=== PATIENT | female | born 1950 | race Caucasian/White ===

== ENCOUNTER → 2016-08-29 | Outpatient (REF) | payer MEDICARE ==
[~2016-08-29] MED LIST: /ALEN70TA OR; /ASCO250TA PO; ACTO150T PO; ALEN70TA39 PO; ALEV220C2 PO; ASPI325T PO; ASPI81TA85 PO; ATOR40TA PO; BACL10TA2 PO; BUTR5DIS2 TD; CALC500T36 PO; CELE40TA; COUM2.5T11 PO; CYCL10TA PO; DETR2CAP PO; FLEX10TA2 PO; GABA300C2 PO; GLUC500T3 OR; HYDR-3713 PO; HYDR-3716 PO; IMIT50TA PO; LIPI20TA PO; LUNESTA; MIACALCIN INJ; NAPR500T OR; NEUR300C PO; NORC7.5T PO; NORCOBULK PO; OMEP40CA2 PO; PAIN325T OR; PERC5TAB6 PO; PREG50CA OR; PRIL20CA PO; SERT100T OR; SIMV40TA2 OR; SUMA100T2 PO; TRAM50TA2 PO; TRAZ50TA PO; TYLE650T25 PO; TYLETAB3 PO; VICODINES TAB PO; VIT D 2000 PO; VITA100037 PO; ZONI100C2 PO; ZONI50CA PO; ZYRT10TA2 PO; [UNRECOGNIZED DRUG - REMARK]; [UNRECOGNIZED DRUG - REMARK] PO
[2016-08-29 19:02] LABS: BASO # 0.1 K/mm3 (0.0-0.2); EOS % 0.3 % (0.0-3.0); LARGE UNSTAINED CELL # 0.1 K/mm3 (0.0-0.4); LARGE UNSTAINED CELL % 1.1 % (0.0-4.0); LYMPH # 2.3 K/mm3 (1.5-4.5); LYMPH % 20.6 % (24.0-44.0); MEAN CORPUSCULAR HEMOGLOBIN 28.5 pg (27.0-33.0); MEAN CORPUSCULAR HGB CONC 32.5 g/dl (32.0-36.5); MEAN CORPUSCULAR VOLUME 87.7 fl (80.0-96.0); MONO # 0.6 K/mm3 (0.0-0.8); MONO % 5.3 % (0.0-5.0); NEUTROPHILS # 7.7 K/mm3 (1.8-7.7); NEUTROPHILS % 71.6 % (36.0-66.0); PLATELET COUNT, AUTOMATED 153 k/mm3 (150-450); RED CELL DISTRIBUTION WIDTH 13.2 % (11.5-14.5); WHITE BLOOD COUNT 10.8 K/mm3 (4.0-10.0)
[2016-08-29 19:57] LABS: ERYTHROCYTE SEDIMENTATION RATE 26 mm/hr (0-30)
[2016-09-01 00:11] LABS: Lyme Disease IgG/IgM Antibodie <0.91 ISR (0.00-0.90); Lyme Disease IgM Ab Quantitati <0.80 index (0.00-0.79)
== END ==
LOC: M LABDRAW1 16:29
PROVIDERS: ATTEND Orthopaedic Surgery
DX: M19.071 Primary osteoarthritis, right ankle and foot (principal)

== ENCOUNTER → 2016-09-20 | Outpatient (CLI) | payer MEDICARE ==
--- NOTE | 2016-09-21 01:30 | ECWPNPC ---
PATIENT NAME: DWAYNE PERALTA : 1950 GENDER: FEMALE VISIT DATE: 09/20/2016 DISCHARGE DATE: 09/20/16 1000 VISIT LOCKED DATE TIME: PHYSICIAN: KEN AMEZQUITA RESOURCE: KEN AMEZQUITA REASON FOR APPOINTMENT 1. LOW BACK PAIN HISTORY OF PRESENT ILLNESS HISTORY OF PRESENT ILLNESS: PAIN THE PATIENT DESCRIBES THE PAIN... THE PATIENT DESCRIBES THE PAIN... THE PATIENT DESCRIBES THE PAIN... HERE FOR F/U OF PERSISTENT LBP.HAD RIGHT TOTAL KNEE ON 06-28-16.CURRENTLY INVOLVED WITH PT.USING HYDROCODONE 7.5/325 PERIODICALLY FOR SEVERE PAIN.TAKING GABAPENTIN 300MG BID AND MELOXICAM7.5MG DAILY.SINCE TOTAL KNEE SURGERY REPORTING HYDROCODONE NOT EFFECTIVE .USING AT THE MOST 2 PER DAY.REPORTING INCREASE IN RIGHT LBP. MEDICATION HELPFUL AT .DENIES SIDE EFFECTS.RATING LBP 5/10 VAS. FALL RISK SCREENING: SCREENING :NO FALLS IN THE PAST YEAR CURRENT MEDICATIONS TAKING TRAZODONE HCL 50 MG TABLET 1-2 TABLETS AT BEDTIME ORALLY ONCE A DAY TAKING ZONEGRAN 100 MG CAPSULE 2 CAPS ORALLY ONCE AT NIGHT, NOTES: ALI TAKING CALCIUM 600 MG TABLET 1 TABLET WITH MEALS ORALLY ONCE A DAY TAKING SUMATRIPTAN SUCCINATE 100 MG TABLET 1 TABLET NEEDED ONE TIME ORALLY ONCE A DAY NEEDED TAKING VITAMIN D 2000 UNIT CAPSULE 1 CAPSULE ORALLY ONCE A DAY TAKING ASPIR-81 81 MG TABLET DELAYED RELEASE 1 TABLET ORALLY ONCE A DAY 3 TIMES A WEEK TAKING SALINE NASAL SPRAY 0.65 % SOLUTION 2 DROPS IN EACH NOSTRIL NEEDED NASALLY EVERY 4 HRS NEEDED TAKING SERTRALINE HCL 100 MG TABLET 1 1/2 TABLETS ONCE A DAY ORALLY 30 DAYS TAKING ESTRACE 0.1 MG/GM CREAM 1 GM VAGINAL TWICE WEEKLY TAKING ALENDRONATE 70 70MG TABLET 1 TABLET ORAL ONCE A WEEK...NEEDS AN APPT TAKING OMEPRAZOLE 40MG 40 MG TABLET 1 TABLET ORAL ONCE A DAY...NEEDS AN APPT TAKING LIPITOR 40 MG TABLET 1 TABLET ONCE A DAY... NEEDS TO SCHEDULE AN APPT ORALLY 30 DAYS TAKING NORCO 7.5-325 MG TABLET 1 TABLET NEEDED ORALLY EVERY 6 HRS MDD4 TAKING GABAPENTIN 300MG CAPSULE 2 CAPS ORALLY TWICE A DAY, NOTES: PAIN CLINIC TAKING TIZANIDINE HCL 4 MG TABLET 1 TABLET NEEDED ORALLY THREE TIMES A DAY NOT-TAKING CUSTOM DO NOT USE TRAMADOL 50 MG TABLET 1 TAB(S) ORALLY TWICE A DAY NEEDED, NOTES: PAIN CLINIC NOT-TAKING ZOFRAN 8 MG TABLET 1 TABLET ORALLY ONCE A DAY NEEDED NOT-TAKING FLEXERIL 10 MG 30 10 MG TABLETS ONE TABLET ORALLY EVERY 8 HOURS PRN PAIN, NOTES: ALI NOT-TAKING ZYRTEC ALLERGY 10 MG TABLET 1 TABLET ONCE A DAY ORALLY 30 DAYS NOT-TAKING ALENDRONATE SODIUM 70 TABLET TAKE 1 TABLET BY MOUTH ONCE A WEEK* NEED APPOINTMENT FOR REFILLS* NOT-TAKING SENOKOT S 8.6-50 MG TABLET 2 TABLET IN THE EVENING NEEDED ORALLY QHS, NOTES: NO LONGER USING NOT-TAKING TOLTERODINE TARTRATE 2 MG TABLET 1 TABLET ORALLY TWICE A DAY DISCONTINUED BACLOFEN 10 MG TABLET 1 TABLET WITH FOOD OR MILK ORALLY THREE TIMES A DAY DISCONTINUED MELOXICAM 7.5 MG TABLET 1 TABLET ORALLY DAILY UNKNOWN CEFUROXIME AXETIL 500 MG TABLET 1 TABLET ORALLY TWICE A DAY, NOTES: URGENT CARE MEDICATION LIST REVIEWED AND RECONCILED WITH THE PATIENT PAST MEDICAL HISTORY B/L LOWER EXTREMITY PAIN RIGHT HIP PAIN H/O DEPRESSION 6-7 YRS AGO. CHRONIC LOWER BACK PAIN WITH DDD - ORTHO/PAIN CLINIC OSTEOPOROSIS-BONE DENSITY (07/2011) REPEAT [id number] BONE DENSITY 12/2013-DUE IN 2015 HYPERLIPIDEMIA MIGRAINE HEADACHES CONSTIPATION, COLONOSCOPY 10/11 NONDEPENDENT TOBACCO USE DISORDER SLEEP APNEA ALLERGIES CELEBREX: EQUILIBRIUM OFF: ALLERGY PENICILLIN (FOR ALLERGIES USE ONLY): HIVES: ALLERGY LATEX (FOR ALLERGY USE ONLY): RASH: ALLERGY SURGICAL HISTORY RIGHT OOPHORECTOMY AND TUBE 1979 COLONOSCOPY W/ POLYP- DR. GRAF 2006 LEFT KNEE ARTHROCOPIC SURGERY FOR MENISCAL TEAR ([facility]) 09/2012 APPENDECTOMY/INCIDENTAL TO OVARY REMOVAL 1978- COLONOSCOPY WITH ADENOMATOUS POLYP - DR JOHNSON 09/2014 R KNEE ARTHOSCOPIC 03-04-15 TOTAL RIGHT KNEE 06/28/17 SOCIAL HISTORY GENERAL: TOBACCO USE ARE YOU A:NONSMOKER LEARNING BARRIERS / SPECIAL NEEDS ORIENTED TO PLAN OF CARE: PATIENT, PAIN MANAGEMENT PATIENT, ORIENTED TO PLAN OF CARE: PATIENT, PAIN MANAGEMENT PATIENT. NEW PATIENT PAIN DIARY TODAY'S VISITNOTES FROM 0-10, WHAT LEVEL IS YOUR PAIN TODAY?0 PAIN CLINIC PFS, CLERGY, PUBLIC HEALTH REFERRALS PFS REFERRAL NEEDED?NO CLERGY REFERRAL NEEDED?NO PUBLIC HEALTH REFERRAL NEEDED?NO WAS THE PROVIDER NOTIFIED OF ANY PERTINENT INFO?NO PFS REFERRAL NEEDED?NO CLERGY REFERRAL NEEDED?NO PUBLIC HEALTH REFERRAL NEEDED?NO WAS THE PROVIDER NOTIFIED OF ANY PERTINENT INFO?NO HOSPITALIZATION/MAJOR DIAGNOSTIC PROCEDURE COMPLEX MIGRAINES 10/16/13 REVIEW OF SYSTEMS CONSTITUTIONAL: ANY CHANGE IN YOUR MEDICAL CONDITION? YES, TOTAL RIGHT KNEE 06/28/16 DUE TO THIS SHE HAD TO CANCEL APPOINTMENTS FOR TPI. . CHILLS NO . FEVER NO . INFECTION: DO YOU HAVE NEW INFECTIONS? NO . DO YOU HAVE HISTORY OF MRSA? NO . MUSCULOSKELETAL: ANY NEW PATTERNS OF PAIN OR NUMBNESS? YES, PAIN MID BACK THAT IS SORE TO TOUCH AT TIMES. BOTH ARMS ARE JERKING AT TIME . GASTROENTEROLOGY: ANY NEW CHANGE IN BOWEL CONTROL? NO . GENITOURINARY: ANY NEW CHANGE IN BLADDER CONTROL? NO . IS THERE A CHANCE YOU COULD BE ? NO . HEMATOLOGY/LYMPH: DO YOU TAKE ANY BLOOD THINNERS? (FOR EXAMPLE- COUMADIN, PLAVIX, AGGRENOX, PLATEL, PRADAXA, OR XARELTO) NO . WHEN WAS YOUR LAST DOSE? DATE: TIME: . NEUROLOGY: HAVE YOU FALLEN IN THE PAST 6 MONTHS? NO . ANY NEW EXTREMITY NUMBNESS OR WEAKNESS? NO . CARDIOLOGY: DO YOU HAVE A PACEMAKER OR DEFIBRILLATOR? NO . RESPIRATORY: HAVE YOU BEEN SICK IN THE PAST WEEK? NO . FEVER NO . FLU LIKE SYMPTOMS? NO . COUGH NO . INTEGUMENTARY: DO YOU HAVE ANY RASHES OR OPEN SORES? NO . ALLERGIC/IMMUNO: ARE YOU ALLERGIC TO SHELLFISH OR IV DYE? NO . ANY NEW ALLERGIES? NO . PSYCHIATRIC: DO YOU HAVE THOUGHTS OF HURTING YOURSELF OR SOMEONE ELSE? NO . ARE YOU ABUSED, NEGLECTED, OR IN AN UNSAFE ENVIRONMENT? NO . ENDOCRINOLOGY: ARE YOU DIABETIC? NO . OTHER: DO YOU NEED ANY PRESCRIPTIONS? YES, HYDROCODONE . IF YES, PLEASE LIST: ____ . ANY NEW PROBLEMS WITH YOUR MEDICATIONS? NO . WHEN DID YOU LAST EAT? ____ . WHEN DID YOU LAST DRINK? ____ . WHAT DID YOU LAST DRINK? ____ . NAME OF PERSON DRIVING YOU HOME? ____ . DO YOU HAVE ANY OTHER QUESTIONS OR CONCERNS NO . REVIEWED BY: PROVIDER: KEN CHEEK . VITAL SIGNS WT 111.4 LBS, HT 59 IN, BMI 22.50 INDEX, BP 140/79 MM HG, HR 65 /MIN, RR 16 /MIN, TEMP 96.3 F, OXYGEN SAT % 95%, NA INITIALS SC 09:04, REVIEWED BY: BARTOLO. EXAMINATION GENERAL EXAMINATION: LUNGS:LUNG SOUNDS ARE CLEAR. HEART:HEART RATE REGULAR. MUSCULOSKELETAL:*, MUSCLE STRENGTH TESTING 5/5 BILATERAL, PALPATION: POSITIVE FOR PAIN OVER L/S SPINE. POSITIVE FOR PAIN OVER L/S PARASPINALS R>L.SPECIFIC POINT TENDERNESS OVER RIGHT SIJ. TRIGGER POINT NOTED RIGHT LUMBAR PARASPINAL.RESTRICTION OF ROJM LUMBAR SPINE DUE TO AGGREVATION/PAIN RIGHT LOW BACK. ASSESSMENTS BACK PAIN - LUMBAR - 724.2 (PRIMARY) SACROILIITIS - M46.1 CHRONIC PRESCRIPTION OPIATE USE - Z79.891 TREATMENT BACK PAIN - LUMBAR CONTINUE GABAPENTIN CAPSULE, 300MG, 2 CAPS, ORALLY, TWICE A DAY, NOTES: PAIN CLINIC CONTINUE TIZANIDINE HCL TABLET, 4 MG, 1 TABLET NEEDED, ORALLY, THREE TIMES A DAY REFILL NORCO TABLET, 7.5-325 MG, 1 TABLET NEEDED, ORALLY, EVERY 6 HRS MDD4, 30 DAY(S), 120, REFILLS 0 INJECTION ANESTHETIC SACROILIAC JOINT NOTES: ISTOP REGISTRY REVIEWED AND DEMNOSTRATES COMPLLIANCE. BRINGS IN MEDICATIONS WHICH IS APPROPRIATE FOR WHAT WAS DISPENSED. RECENT URINE TOXICOLOGY REVIEWED. NO UNAUTHORIZED MEDICATIONS. NO ILLICIT SUBSTANCES AND PRESCRIBED MEDICATIONS WERE PRESENT. URINE TOX TODAY. PROCEDURE CODES FA211 ESTABILISHED [facility]IENT [facility] CHARGE DISPOSITION & COMMUNICATION FOLLOW UP 2WK POST PROC. (REASON: CHANGE TPI TO R SIJ) ELECTRONICALLY SIGNED BY ADIA DALTON ON 09/20/2016 AT 04:00 PM EST DISCLAIMER : THIS IS A VISIT SUMMARY EXTRACTED FROM THE [employer] CHART. IT IS NOT A COPY OF THE [employer] PROGRESS NOTE. KARLA
== END ==
LOC: M PAIN 08:40
PROVIDERS: ATTEND Nurse Practitioner Family
DX: Z09 Encounter for follow-up examination after completed treatment for conditions other than malignant neoplasm (principal); G89.29 Other chronic pain; M46.1 Sacroiliitis, not elsewhere classified; M81.0 Age-related osteoporosis without current pathological fracture; E78.5 Hyperlipidemia, unspecified; K21.9 Gastro-esophageal reflux disease without esophagitis; G47.30 Sleep apnea, unspecified; Z88.8 Allergy status to other drugs, medicaments and biological substances; Z88.0 Allergy status to penicillin; Z91.040 Latex allergy status; Z79.82 Long term (current) use of aspirin; Z79.891 Long term (current) use of opiate analgesic; Z79.899 Other long term (current) drug therapy; Z86.59 Personal history of other mental and behavioral disorders; Z86.69 Personal history of other diseases of the nervous system and sense organs

== ENCOUNTER → 2016-09-26 | Outpatient (CLI) | payer MEDICARE ==
[~2016-09-26] MED LIST changes: +BUPIVACAINE HCL 0.25% 30 ML VIAL As Ordered ONE; +ISOVUE-M 300 61% 15ML VIAL (Q9967) As Ordered ONE; +LIDOCAINE 1% SDV INJ 30 ML VIAL As Ordered ONE; +TRIAMCINOLONE ACETONIDE SUSP 40 MG/ML VIAL (J3301) As Ordered ONE; +diazePAM 5 MG TAB As Ordered ONE; +oxyCODONE 5MG TAB As Ordered ONE
--- NOTE | 2016-09-26 12:34 | REP ---
SI JOINT SERIES: Limited study four views. HISTORY: Right SI joint injection for pain. 12 seconds of fluoroscopy time is reported. FINDINGS: A sequence of four fluoroscopically obtained intraprocedural spot radiographs of the right SI joint document needle position and contrast injection associated with SI joint injection procedure. Signed by Boni Paul MD 09/26/2016 02:01 P
--- NOTE | 2016-09-30 23:21 | ECWPNPC ---
PATIENT NAME: DWAYNE PERALTA : 1950 GENDER: FEMALE VISIT DATE: 09/26/2016 DISCHARGE DATE: 09/26/16 1024 VISIT LOCKED DATE TIME: PHYSICIAN: ESTEPHANIA GUTHRIE RESOURCE: ESTEPHANIA GUTHRIE REASON FOR APPOINTMENT 1. RIGHT SIJ HISTORY OF PRESENT ILLNESS HISTORY OF PRESENT ILLNESS: PAIN THE PATIENT DESCRIBES THE PAIN... FALL RISK SCREENING: SCREENING :NO FALLS IN THE PAST YEAR CURRENT MEDICATIONS TAKING TRAZODONE HCL 50 MG TABLET 1-2 TABLETS AT BEDTIME ORALLY ONCE A DAY, NOTES: 09/25/16@2330 TAKING ZONEGRAN 100 MG CAPSULE 2 CAPS ORALLY ONCE AT NIGHT, NOTES: 09/25/16 TAKING CALCIUM 600 MG TABLET 1 TABLET WITH MEALS ORALLY ONCE A DAY, NOTES: 09/25/16 TAKING SUMATRIPTAN SUCCINATE 100 MG TABLET 1 TABLET NEEDED ONE TIME ORALLY ONCE A DAY NEEDED, NOTES: 4-5 DAYS AGO TAKING VITAMIN D 2000 UNIT CAPSULE 1 CAPSULE ORALLY ONCE A DAY, NOTES: 09/25/16@1199 TAKING ASPIR-81 81 MG TABLET DELAYED RELEASE 1 TABLET ORALLY ONCE A DAY 3 TIMES A WEEK, NOTES: 09/25/16@1200 TAKING SALINE NASAL SPRAY 0.65 % SOLUTION 2 DROPS IN EACH NOSTRIL NEEDED NASALLY EVERY 4 HRS NEEDED, NOTES: UNKNOWN TAKING SERTRALINE HCL 100 MG TABLET 1 1/2 TABLETS ONCE A DAY ORALLY 30 DAYS , NOTES: 09/25/16@1199 TAKING ESTRACE 0.1 MG/GM CREAM 1 GM VAGINAL TWICE WEEKLY, NOTES: 2 WEEKS AGO TAKING ALENDRONATE 70 70MG TABLET 1 TABLET ORAL ONCE A WEEK...NEEDS AN APPT, NOTES: 09/24/16@1199 TAKING OMEPRAZOLE 40MG 40 MG TABLET 1 TABLET ORAL ONCE A DAY...NEEDS AN APPT, NOTES: 09/25/16 TAKING LIPITOR 40 MG TABLET 1 TABLET ONCE A DAY... NEEDS TO SCHEDULE AN APPT ORALLY 30 DAYS , NOTES: 09/24/16@1199 TAKING GABAPENTIN 300MG CAPSULE 2 CAPS ORALLY TWICE A DAY, NOTES: PAIN09/25/16@2300 CLINIC TAKING TIZANIDINE HCL 4 MG TABLET 1 TABLET NEEDED ORALLY THREE TIMES A DAY, NOTES: 1-2 WEEKS AGO TAKING NORCO 7.5-325 MG TABLET 1 TABLET NEEDED ORALLY EVERY 6 HRS MDD4, NOTES: 09/25/16@1800 NOT-TAKING CUSTOM DO NOT USE TRAMADOL 50 MG TABLET 1 TAB(S) ORALLY TWICE A DAY NEEDED, NOTES: PAIN CLINIC NOT-TAKING ZOFRAN 8 MG TABLET 1 TABLET ORALLY ONCE A DAY NEEDED NOT-TAKING FLEXERIL 10 MG 30 10 MG TABLETS ONE TABLET ORALLY EVERY 8 HOURS PRN PAIN, NOTES: ALI NOT-TAKING ZYRTEC ALLERGY 10 MG TABLET 1 TABLET ONCE A DAY ORALLY 30 DAYS NOT-TAKING ALENDRONATE SODIUM 70 TABLET TAKE 1 TABLET BY MOUTH ONCE A WEEK* NEED APPOINTMENT FOR REFILLS* NOT-TAKING SENOKOT S 8.6-50 MG TABLET 2 TABLET IN THE EVENING NEEDED ORALLY QHS, NOTES: NO LONGER USING NOT-TAKING TOLTERODINE TARTRATE 2 MG TABLET 1 TABLET ORALLY TWICE A DAY UNKNOWN CEFUROXIME AXETIL 500 MG TABLET 1 TABLET ORALLY TWICE A DAY, NOTES: URGENT CARE MEDICATION LIST REVIEWED AND RECONCILED WITH THE PATIENT PAST MEDICAL HISTORY B/L LOWER EXTREMITY PAIN RIGHT HIP PAIN H/O DEPRESSION 6-7 YRS AGO. CHRONIC LOWER BACK PAIN WITH DDD - ORTHO/PAIN CLINIC OSTEOPOROSIS-BONE DENSITY (07/2011) REPEAT [id number] BONE DENSITY 12/2013-DUE IN 2015 HYPERLIPIDEMIA MIGRAINE HEADACHES CONSTIPATION, COLONOSCOPY 10/11 NONDEPENDENT TOBACCO USE DISORDER SLEEP APNEA ALLERGIES CELEBREX: EQUILIBRIUM OFF: ALLERGY PENICILLIN (FOR ALLERGIES USE ONLY): HIVES: ALLERGY LATEX (FOR ALLERGY USE ONLY): RASH: ALLERGY SURGICAL HISTORY RIGHT OOPHORECTOMY AND TUBE 1979 COLONOSCOPY W/ POLYP- DR. GRAF 2006 LEFT KNEE ARTHROCOPIC SURGERY FOR MENISCAL TEAR ([facility]) 09/2012 APPENDECTOMY/INCIDENTAL TO OVARY REMOVAL 1978- COLONOSCOPY WITH ADENOMATOUS POLYP - DR JOHNSON 09/2014 R KNEE ARTHOSCOPIC 03-04-15 TOTAL RIGHT KNEE 06/28/17 SOCIAL HISTORY GENERAL: TOBACCO USE ARE YOU A:NONSMOKER LEARNING BARRIERS / SPECIAL NEEDS ORIENTED TO PLAN OF CARE: PATIENT, PAIN MANAGEMENT PATIENT, ORIENTED TO PLAN OF CARE: PATIENT, PAIN MANAGEMENT PATIENT. NEW PATIENT PAIN DIARY TODAY'S VISITNOTES FROM 0-10, WHAT LEVEL IS YOUR PAIN TODAY?0 PAIN CLINIC PFS, CLERGY, PUBLIC HEALTH REFERRALS PFS REFERRAL NEEDED?NO CLERGY REFERRAL NEEDED?NO PUBLIC HEALTH REFERRAL NEEDED?NO WAS THE PROVIDER NOTIFIED OF ANY PERTINENT INFO?NO PFS REFERRAL NEEDED?NO CLERGY REFERRAL NEEDED?NO PUBLIC HEALTH REFERRAL NEEDED?NO WAS THE PROVIDER NOTIFIED OF ANY PERTINENT INFO?NO HOSPITALIZATION/MAJOR DIAGNOSTIC PROCEDURE COMPLEX MIGRAINES 10/16/13 REVIEW OF SYSTEMS CONSTITUTIONAL: ANY CHANGE IN YOUR MEDICAL CONDITION? NO . CHILLS NO . FEVER NO . INFECTION: DO YOU HAVE NEW INFECTIONS? NO . DO YOU HAVE HISTORY OF MRSA? NO . MUSCULOSKELETAL: ANY NEW PATTERNS OF PAIN OR NUMBNESS? YES . GASTROENTEROLOGY: ANY NEW CHANGE IN BOWEL CONTROL? NO . GENITOURINARY: ANY NEW CHANGE IN BLADDER CONTROL? NO . IS THERE A CHANCE YOU COULD BE ? NO . HEMATOLOGY/LYMPH: DO YOU TAKE ANY BLOOD THINNERS? (FOR EXAMPLE- COUMADIN, PLAVIX, AGGRENOX, PLATEL, PRADAXA, OR XARELTO) NO . WHEN WAS YOUR LAST DOSE? DATE: TIME: . NEUROLOGY: HAVE YOU FALLEN IN THE PAST 6 MONTHS? NO . ANY NEW EXTREMITY NUMBNESS OR WEAKNESS? NO . CARDIOLOGY: DO YOU HAVE A PACEMAKER OR DEFIBRILLATOR? NO . RESPIRATORY: HAVE YOU BEEN SICK IN THE PAST WEEK? NO . FEVER NO . FLU LIKE SYMPTOMS? NO . COUGH NO . INTEGUMENTARY: DO YOU HAVE ANY RASHES OR OPEN SORES? NO . ALLERGIC/IMMUNO: ARE YOU ALLERGIC TO SHELLFISH OR IV DYE? NO . ANY NEW ALLERGIES? NO . PSYCHIATRIC: DO YOU HAVE THOUGHTS OF HURTING YOURSELF OR SOMEONE ELSE? NO . ARE YOU ABUSED, NEGLECTED, OR IN AN UNSAFE ENVIRONMENT? NO . ENDOCRINOLOGY: ARE YOU DIABETIC? NO . OTHER: DO YOU NEED ANY PRESCRIPTIONS? NO . IF YES, PLEASE LIST: ____ . ANY NEW PROBLEMS WITH YOUR MEDICATIONS? NO . WHEN DID YOU LAST EAT? 1900 . WHEN DID YOU LAST DRINK? ____ . WHAT DID YOU LAST DRINK? COFFEE . NAME OF PERSON DRIVING YOU HOME? MONIKA . DO YOU HAVE ANY OTHER QUESTIONS OR CONCERNS NO . REVIEWED BY: PROVIDER: . VITAL SIGNS WT 110 LBS, HT 59 IN, BMI 22.21 INDEX, BP 139/63 MM HG, HR 98 /MIN, RR 16 /MIN, TEMP 97.8 F, OXYGEN SAT % 99%, REVIEWED BY: KATIE. ASSESSMENTS SACROILIITIS, NOT ELSEWHERE CLASSIFIED - M46.1 (PRIMARY) PROCEDURES PN SI PRE PROCEDURE DIAGNOSIS SACROILIITIS, SACROILIAC JOINT DYSFUNCTION POST PROCEDURE DIAGNOSIS SACROILIITIS, SACROILIAC JOINT DYSFUNCTION PROCEDURE ., RIGHT SACROILIAC JOINT BLOCK SURGEON DR. ESTEPHANIA GUTHRIE [employer] LABORER NONE ANESTHESIA LOCAL PRE PROCEDURE NOTE PATIENT WITH HISTORY OF CHRONIC LOW BACK PAIN. I EVALUATED THE PATIENT AND REVIEWED THE CHART. I WENT OVER THE RISKS, ALTERNATIVES, AND BENEFITS ASSOCIATED WITH THIS PROCEDURE. THE PATIENT WOULD LIKE TO PROCEED AND GAVE CONSENT TO PERFORM THE PROCEDURE. THE PATIENT DENIES UNEXPLAINABLE WEIGHT LOSS, FEVER, CHILLS, OR NEW CHANGES IN URINARY OR BOWEL CONTROL DESCRIPTION OF PROCEDURE THE PATIENT WAS BROUGHT TO THE PROCEDURE ROOM AND PLACED IN THE PRONE POSITION. THE LUMBOSACRAL AREA WAS CLEANED WITH CHLORAPREP SOLUTION AND DRAPED ASEPTICALLY. THE PROCEDURE WAS DONE UNDER STERILE CONDITIONS. I CHECKED LATERALITY AND THE LEVEL WHERE THE PROCEDURE WAS GOING TO BE PERFORMED WITH THE PATIENT AND THE SUPPORTING STAFF AT THE MOMENT OF THE TIME OUT IN THE PROCEDURE ROOM. UNDER FLUOROSCOPIC GUIDANCE, TARGET POINT WAS SELECTED AT THE LOWER BORDER OF THE RIGHT SACROILIAC JOINT. TARGET POINT WAS SELECTED AFTER MEDIAL ROTATION AND TILT OF THE MAGNIFIER OF THE C-ARM. LIDOCAINE WAS USED TO NUMB THE SKIN AND SUBCUTANEOUS TISSUE BELOW IT. A SPINAL NEEDLE, 22-GAUGE, WAS ADVANCED UNDER FLUOROSCOPIC GUIDANCE AND FOLLOWING PATIENT FEEDBACK UNTIL THE TARGET AREA WAS TOUCHED. THE POSITION OF THE NEEDLE WAS VERIFIED WITH AP AND LATERAL VIEWS. AFTER PROPER POSITION OF THE NEEDLE WAS ACHIEVED, ISOVUE M DYE 30%, 0.25 ML, WAS INJECTED SHOWING SPREAD OF THE DYE. THEN, A SOLUTION OF 20 MG OF KENALOG WAS INJECTED IN RIGHT JOINT WITH 3 ML OF BUPIVACAINE 0.125%. THERE WAS NO EVIDENCE OF BLOOD, PARESTHESIA OR CEREBROSPINAL FLUID DURING THE PROCEDURE. THE PATIENT WAS SENT TO THE RECOVERY ROOM. THE PATIENT WAS MOVING THE EXTREMITIES AND DOING WELL. THERE WAS NO COMPLICATION DURING THE PROCEDURE. FLUOROSCOPY TIME WAS 12 SECONDS POST PROCEDURE NOTE THE PATIENT WILL BE SEEN IN A FOLLOW UP IN THE NEXT FEW WEEKS. INSTRUCTIONS WERE GIVEN, QUESTIONS WERE ANSWERED, AND THE PATIENT EXPRESSED UNDERSTANDING AND AGREED WITH THE PLAN. INSTRUCTIONS WERE GIVEN, QUESTIONS WERE ANSWERED, PATIENT REPORTS UNDERSTANDING AND AGREES WITH THE PLAN. I, CONNER FISHER, DOCUMENTED THE ABOVE INFORMATION ACTING A SCRIBE FOR DR. GUTHRIE. I HAVE REVIEWED THE ABOVE DOCUMENT, WRITTEN BY CONNER DAWKINS AND I VERIFY THAT IT IS ACCURATE. DIAGNOSTIC [facility] FLUORO GUIDANCE (PAIN)[id number] PROCEDURE CODES 56659 INJECT SACROILIAC JOINT 6045F RADXPS IN END [id number] PXD DISPOSITION & COMMUNICATION FOLLOW UP 3 WEEKS ELECTRONICALLY SIGNED BY ESTEPHANIA GUTHRIE MD ON 09/30/2016 AT 04:47 PM EST DISCLAIMER : THIS IS A VISIT SUMMARY EXTRACTED FROM THE [employer] CHART. IT IS NOT A COPY OF THE [employer] PROGRESS NOTE. MTDD
== END ==
LOC: M PAIN 09:00
PROVIDERS: ATTEND Anesthesiology
DX: G89.29 Other chronic pain (principal); M46.1 Sacroiliitis, not elsewhere classified; E78.5 Hyperlipidemia, unspecified; M81.0 Age-related osteoporosis without current pathological fracture; G47.30 Sleep apnea, unspecified; Z72.0 Tobacco use; Z88.0 Allergy status to penicillin; Z88.8 Allergy status to other drugs, medicaments and biological substances; Z91.040 Latex allergy status; Z79.82 Long term (current) use of aspirin; Z79.891 Long term (current) use of opiate analgesic; Z79.899 Other long term (current) drug therapy; Z86.59 Personal history of other mental and behavioral disorders; Z86.69 Personal history of other diseases of the nervous system and sense organs
CPT/HCPCS: G0260; J3301; Q9967

== ENCOUNTER → 2016-10-17 | Outpatient (CLI) | payer MEDICARE ==
[~2016-10-17] MED LIST changes: -BUPIVACAINE HCL 0.25% 30 ML VIAL As Ordered ONE; -ISOVUE-M 300 61% 15ML VIAL (Q9967) As Ordered ONE; -LIDOCAINE 1% SDV INJ 30 ML VIAL As Ordered ONE; -TRIAMCINOLONE ACETONIDE SUSP 40 MG/ML VIAL (J3301) As Ordered ONE; -diazePAM 5 MG TAB As Ordered ONE; -oxyCODONE 5MG TAB As Ordered ONE
--- NOTE | 2016-10-18 00:39 | ECWPNPC ---
PATIENT NAME: DWAYNE PERALTA : 1950 GENDER: FEMALE VISIT DATE: 10/17/2016 DISCHARGE DATE: 10/17/16 1016 VISIT LOCKED DATE TIME: PHYSICIAN: KEN AMEZQUITA RESOURCE: KEN AMEZQUITA REASON FOR APPOINTMENT 1. POST SIJ HISTORY OF PRESENT ILLNESS HISTORY OF PRESENT ILLNESS: HERE FOR POST PROC. F/U.HAD RSIJ ON 09-26-16.REPORTS >50% IMPROVEMENT IN PAIN POST PROCEDURE THAT CONTINUES TODAY.RATING PAIN VAS 2/10.PAIN IS LOCATED ACROSS LOW BACK AND DESCRIBED INTERMITTENT THROBBING AND SORE.USING HYDROCODONE 7.5MG SPARINGLY FOR SEVERE PAIN EPISODES.TAKING GABAPENTIN 300MG BID.FINDS MEDICATION EFFECTIVE AT REDUCING PAIN AND KEEPING HER COMFORTABLE.REPORTS FALLING ON ICE LAST WEEK AND INJURING RIGHT KNEE.STATES SHE WAS EVALUATED AT [facility] AFTER FALL DUE TO KNEE REPLACEMENT IN .EVERYTHING CHECKED OUT FINE AND SHE CONTINUES TO IMPROVE SINCE INJURY. PAIN THE PATIENT DESCRIBES THE PAIN... FALL RISK SCREENING: SCREENING :NO FALLS IN THE PAST YEAR CURRENT MEDICATIONS TAKING TRAZODONE HCL 50 MG TABLET 1-2 TABLETS AT BEDTIME ORALLY ONCE A DAY, NOTES: 09/25/16@2330 TAKING ZONEGRAN 100 MG CAPSULE 2 CAPS ORALLY ONCE AT NIGHT, NOTES: 09/25/16@2330 TAKING CALCIUM 600 MG TABLET 1 TABLET WITH MEALS ORALLY ONCE A DAY, NOTES: 09/25/16@2330 TAKING SUMATRIPTAN SUCCINATE 100 MG TABLET 1 TABLET NEEDED ONE TIME ORALLY ONCE A DAY NEEDED, NOTES: 4-5 DAYS AGO TAKING VITAMIN D 2000 UNIT CAPSULE 1 CAPSULE ORALLY ONCE A DAY, NOTES: 09/25/16@1200 TAKING ASPIR-81 81 MG TABLET DELAYED RELEASE 1 TABLET ORALLY ONCE A DAY 3 TIMES A WEEK, NOTES: 09/25/16@1200 TAKING SALINE NASAL SPRAY 0.65 % SOLUTION 2 DROPS IN EACH NOSTRIL NEEDED NASALLY EVERY 4 HRS NEEDED, NOTES: UNKNOWN TAKING SERTRALINE HCL 100 MG TABLET 1 1/2 TABLETS ONCE A DAY ORALLY 30 DAYS , NOTES: 09/25/16@1200 TAKING ESTRACE 0.1 MG/GM CREAM 1 GM VAGINAL TWICE WEEKLY, NOTES: 2 WEEKS AGO TAKING ALENDRONATE 70 70MG TABLET 1 TABLET ORAL ONCE A WEEK...NEEDS AN APPT, NOTES: 09/24/16@1200 TAKING OMEPRAZOLE 40MG 40 MG TABLET 1 TABLET ORAL ONCE A DAY...NEEDS AN APPT, NOTES: 09/25/16@1200 TAKING LIPITOR 40 MG TABLET 1 TABLET ONCE A DAY... NEEDS TO SCHEDULE AN APPT ORALLY 30 DAYS , NOTES: 09/24/16@1200 TAKING GABAPENTIN 300MG CAPSULE 1 CAPSULE ORALLY TWICE A DAY, NOTES: PAIN09/25/16@2300 CLINIC TAKING TIZANIDINE HCL 4 MG TABLET 1 TABLET NEEDED ORALLY THREE TIMES A DAY, NOTES: 1-2 WEEKS AGO TAKING NORCO 7.5-325 MG TABLET 1 TABLET NEEDED ORALLY EVERY 6 HRS MDD4, NOTES: 09/25/16@1800 NOT-TAKING CUSTOM DO NOT USE TRAMADOL 50 MG TABLET 1 TAB(S) ORALLY TWICE A DAY NEEDED, NOTES: PAIN CLINIC NOT-TAKING ZOFRAN 8 MG TABLET 1 TABLET ORALLY ONCE A DAY NEEDED NOT-TAKING FLEXERIL 10 MG 30 10 MG TABLETS ONE TABLET ORALLY EVERY 8 HOURS PRN PAIN, NOTES: ALI NOT-TAKING ZYRTEC ALLERGY 10 MG TABLET 1 TABLET ONCE A DAY ORALLY 30 DAYS NOT-TAKING ALENDRONATE SODIUM 70 TABLET TAKE 1 TABLET BY MOUTH ONCE A WEEK* NEED APPOINTMENT FOR REFILLS* NOT-TAKING SENOKOT S 8.6-50 MG TABLET 2 TABLET IN THE EVENING NEEDED ORALLY QHS, NOTES: NO LONGER USING NOT-TAKING TOLTERODINE TARTRATE 2 MG TABLET 1 TABLET ORALLY TWICE A DAY UNKNOWN CEFUROXIME AXETIL 500 MG TABLET 1 TABLET ORALLY TWICE A DAY, NOTES: URGENT CARE MEDICATION LIST REVIEWED AND RECONCILED WITH THE PATIENT PAST MEDICAL HISTORY B/L LOWER EXTREMITY PAIN RIGHT HIP PAIN H/O DEPRESSION 6-7 YRS AGO. CHRONIC LOWER BACK PAIN WITH DDD - [facility]THO/PAIN CLINIC OSTEOPOROSIS-BONE DENSITY (07/2011) REPEAT [id number] BONE DENSITY 12/2013-DUE IN 2015 HYPERLIPIDEMIA MIGRAINE HEADACHES CONSTIPATION, COLONOSCOPY 10/11 NONDEPENDENT TOBACCO USE DISORDER SLEEP APNEA ALLERGIES CELEBREX: EQUILIBRIUM OFF: ALLERGY PENICILLIN (FOR ALLERGIES USE ONLY): HIVES: ALLERGY LATEX (FOR ALLERGY USE ONLY): RASH: ALLERGY SOCIAL HISTORY GENERAL: TOBACCO USE ARE YOU A:NONSMOKER LEARNING BARRIERS / SPECIAL NEEDS ORIENTED TO PLAN OF CARE: PATIENT, PAIN MANAGEMENT PATIENT, ORIENTED TO PLAN OF CARE: PATIENT, PAIN MANAGEMENT PATIENT. NEW PATIENT PAIN DIARY TODAY'S VISITNOTES FROM 0-10, WHAT LEVEL IS YOUR PAIN TODAY?0 PAIN CLINIC PFS, CLERGY, PUBLIC HEALTH REFERRALS PFS REFERRAL NEEDED?NO CLERGY REFERRAL NEEDED?NO PUBLIC HEALTH REFERRAL NEEDED?NO WAS THE PROVIDER NOTIFIED OF ANY PERTINENT INFO?NO PFS REFERRAL NEEDED?NO CLERGY REFERRAL NEEDED?NO PUBLIC HEALTH REFERRAL NEEDED?NO WAS THE PROVIDER NOTIFIED OF ANY PERTINENT INFO?NO REVIEW OF SYSTEMS CONSTITUTIONAL: ANY CHANGE IN YOUR MEDICAL CONDITION? NO . RECENT ILLNESS DENIES . CHILLS NO . FEVER NO . WEIGHT LOSS DENIES . INFECTION: DO YOU HAVE NEW INFECTIONS? NO . DO YOU HAVE HISTORY OF MRSA? NO . MUSCULOSKELETAL: ANY NEW PATTERNS OF PAIN OR NUMBNESS? NO . GASTROENTEROLOGY: ANY NEW CHANGE IN BOWEL CONTROL? NO . GENITOURINARY: ANY NEW CHANGE IN BLADDER CONTROL? NO . IS THERE A CHANCE YOU COULD BE ? NO . HEMATOLOGY/LYMPH: DO YOU TAKE ANY BLOOD THINNERS? (FOR EXAMPLE- COUMADIN, PLAVIX, AGGRENOX, PLATEL, PRADAXA, OR XARELTO) NO . WHEN WAS YOUR LAST DOSE? DATE: TIME: . NEUROLOGY: HAVE YOU FALLEN IN THE PAST 6 MONTHS? YES LAST WEEK FELL FACE 1ST IN THE SNOW. SAW ORTHO. SUN., NO MAJOR INJURIES. . ANY NEW EXTREMITY NUMBNESS OR WEAKNESS? NO . CARDIOLOGY: DO YOU HAVE A PACEMAKER OR DEFIBRILLATOR? NO . CHEST PAIN DENIES . SHORTNESS OF BREATH DENIES . RESPIRATORY: HAVE YOU BEEN SICK IN THE PAST WEEK? NO . FEVER NO . FLU LIKE SYMPTOMS? NO . COUGH NO, DENIES . SHORTNESS OF BREATH DENIES . INTEGUMENTARY: DO YOU HAVE ANY RASHES OR OPEN SORES? NO . ALLERGIC/IMMUNO: ARE YOU ALLERGIC TO SHELLFISH OR IV DYE? NO . ANY NEW ALLERGIES? NO . PSYCHIATRIC: DO YOU HAVE THOUGHTS OF HURTING YOURSELF OR SOMEONE ELSE? NO . ARE YOU ABUSED, NEGLECTED, OR IN AN UNSAFE ENVIRONMENT? NO . ENDOCRINOLOGY: ARE YOU DIABETIC? NO . OTHER: DO YOU NEED ANY PRESCRIPTIONS? NO . IF YES, PLEASE LIST: ____ . ANY NEW PROBLEMS WITH YOUR MEDICATIONS? NO . WHEN DID YOU LAST EAT? ____ . WHEN DID YOU LAST DRINK? ____ . WHAT DID YOU LAST DRINK? ____ . NAME OF PERSON DRIVING YOU HOME? ____ . DO YOU HAVE ANY OTHER QUESTIONS OR CONCERNS NO . REVIEWED BY: PROVIDER: KEN CHEEK . VITAL SIGNS WT 108 LBS, HT 59 IN, BMI 21.81 INDEX, BP 157/72 MM HG, HR 68 /MIN, RR 16 /MIN, TEMP 97.3 F, OXYGEN SAT % 97, NA INITIALS HS, REVIEWED BY: AD. EXAMINATION GENERAL EXAMINATION: LUNGS:LUNG SOUNDS ARE CLEAR. HEART:HEART RATE REGULAR. MUSCULOSKELETAL:*, MUSCLE STRENGTH TESTING 5/5 BLE. PALPATION: NEGATIVE FOR PAIN OVER L/S SPINE. NEGATIVE FOR PAIN OVER L/S PARASPINALS. DIAGNOSTIC: . ASSESSMENTS BACK PAIN - LUMBAR - 724.2 (PRIMARY) SACROILIITIS - M46.1 CHRONIC PRESCRIPTION OPIATE USE - Z79.891 TREATMENT BACK PAIN - LUMBAR START NORCO TABLET, 7.5-325 MG, 1, ORALLY, EVERY 6 HRS PRN MDD4, 30 DAY(S), 60, REFILLS 0 START GABAPENTIN CAPSULE, 300 MG, 1 CAPSULE, ORALLY, BID, 30 DAY(S), 60 CAPSULE, REFILLS 2 NOTES: ISTOP REGISTRY REVIEWED AND DEMNOSTRATES COMPLLIANCE. BRINGS IN MEDICATIONS WHICH IS APPROPRIATE FOR WHAT WAS DISPENSED. RECENT URINE TOXICOLOGY REVIEWED. NO UNAUTHORIZED MEDICATIONS. NO ILLICIT SUBSTANCES AND PRESCRIBED MEDICATIONS WERE PRESENT. , RISKS AND BENEFITS OF NARCOTIC/OPIOD MEDICATIONS WERE REVIEWED WITH PATIENT - THIS INCLUDES BUT IS NOT LIMITED TO RISK OF DEPENDANCE/DEVELOPMENT OF ADDICTION, MOOD DISTURBANCE AND DEPRESSION, OSTEOPOROSIS, HORMONAL AND LABIDAL CHANGES, RESPIRATORY DEPRESSION AND . PATIENT IS ADVISED NOT TO DRIVE WHILE ON THESE MEDICATIONS. PROCEDURE CODES FA211 ESTABILISHED PATIENT [facility] CHARGE DISPOSITION & COMMUNICATION FOLLOW UP 2 MONTHS ELECTRONICALLY SIGNED BY ADIA DALTON ON 10/17/2016 AT 05:19 PM EDT DISCLAIMER : THIS IS A VISIT SUMMARY EXTRACTED FROM THE [employer] CHART. IT IS NOT A COPY OF THE [employer] PROGRESS NOTE. MTDD
== END | disposition home or self-care (01) ==
LOC: M PAIN 09:00
PROVIDERS: ATTEND Nurse Practitioner Family
DX: Z09 Encounter for follow-up examination after completed treatment for conditions other than malignant neoplasm (principal); G89.29 Other chronic pain; M46.1 Sacroiliitis, not elsewhere classified; M51.9 Unspecified thoracic, thoracolumbar and lumbosacral intervertebral disc disorder; M81.0 Age-related osteoporosis without current pathological fracture; E78.5 Hyperlipidemia, unspecified; G43.909 Migraine, unspecified, not intractable, without status migrainosus; M79.605 Pain in left leg; M79.604 Pain in right leg; Z79.899 Other long term (current) drug therapy; Z79.82 Long term (current) use of aspirin

== ENCOUNTER → 2016-11-14 | Outpatient (REF) | payer MEDICARE ==
[2016-11-14 17:41] LABS: AMYLASE 69 U/L (25-115)
== END ==
LOC: M LAB REF 16:02
PROVIDERS: ATTEND Nurse Practitioner Family
DX: R63.4 Abnormal weight loss (principal)

== ENCOUNTER → 2016-12-18 | Outpatient (CLI) | payer MEDICARE ==
--- NOTE | 2016-12-21 02:21 | ECWPNPC ---
PATIENT NAME: DWAYNE PERALTA : 1950 GENDER: FEMALE VISIT DATE: 12/18/2016 DISCHARGE DATE: 12/18/16957 VISIT LOCKED DATE TIME: PHYSICIAN: KEN AMEZQUITA RESOURCE: KEN AMEZQUITA REASON FOR APPOINTMENT 1. FOLLOWUP HISTORY OF PRESENT ILLNESS HISTORY OF PRESENT ILLNESS: HERE FOR CHRONIC LBP.CONTINUES WITH C/O CHRONIC ACHING WITH INTERMITTENT SHARP PAIN.CURRENTLY USING HYDROCODONE 7.5MG Q8H PRN PAIN WHICH IS HELPFUL.DENIES SIDE EFFECTS.RATING PAIN VAS 6/10.CURRENTLY BEING TREATED FOR UTI AND CONSTIPATION.HAS RESPONDED WELL TO LUMBAR FACET BLOCKS IN PAST. PAIN THE PATIENT DESCRIBES THE PAIN... FALL RISK SCREENING: SCREENING :NO FALLS IN THE PAST YEAR CURRENT MEDICATIONS TAKING TRAZODONE HCL 50 MG TABLET 1-2 TABLETS AT BEDTIME ORALLY ONCE A DAY, NOTES: 09/25/16@2330 TAKING ZONEGRAN 100 MG CAPSULE 2 CAPS ORALLY ONCE AT NIGHT, NOTES: 09/25/16@2330 TAKING CALCIUM 600 MG TABLET 1 TABLET WITH MEALS ORALLY ONCE A DAY, NOTES: 09/25/16@2330 TAKING SUMATRIPTAN SUCCINATE 100 MG TABLET 1 TABLET NEEDED ONE TIME ORALLY ONCE A DAY NEEDED, NOTES: 4-5 DAYS AGO TAKING VITAMIN D 2000 UNIT CAPSULE 1 CAPSULE ORALLY ONCE A DAY, NOTES: 09/25/16@1200 TAKING ASPIR-81 81 MG TABLET DELAYED RELEASE 1 TABLET ORALLY ONCE A DAY 3 TIMES A WEEK, NOTES: 09/25/16@1200 TAKING SALINE NASAL SPRAY 0.65 % SOLUTION 2 DROPS IN EACH NOSTRIL NEEDED NASALLY EVERY 4 HRS NEEDED, NOTES: UNKNOWN TAKING SERTRALINE HCL 100 MG TABLET 1 1/2 TABLETS ONCE A DAY ORALLY 30 DAYS , NOTES: 09/25/16@1199 TAKING ESTRACE 0.1 MG/GM CREAM 1 GM VAGINAL TWICE WEEKLY, NOTES: 2 WEEKS AGO TAKING ALENDRONATE 70 70MG TABLET 1 TABLET ORAL ONCE A WEEK...NEEDS AN APPT, NOTES: 09/24/16@1199 TAKING OMEPRAZOLE 40MG 40 MG TABLET 1 TABLET ORAL ONCE A DAY...NEEDS AN APPT, NOTES: 09/25/16@1199 TAKING LIPITOR 40 MG TABLET 1 TABLET ONCE A DAY... NEEDS TO SCHEDULE AN APPT ORALLY 30 DAYS , NOTES: 09/24/16@1200 TAKING GABAPENTIN 300MG CAPSULE 1 CAPSULE ORALLY TWICE A DAY, NOTES: PAIN09/25/16@2300 CLINIC TAKING TIZANIDINE HCL 4 MG TABLET 1 TABLET NEEDED ORALLY THREE TIMES A DAY, NOTES: 1-2 WEEKS AGO TAKING NORCO 7.5-325 MG TABLET 1 TABLET NEEDED ORALLY EVERY 6 HRS MDD4, NOTES: 09/25/16@1800 TAKING GABAPENTIN 300 MG CAPSULE 1 CAPSULE ORALLY BID TAKING NORCO 7.5-325 MG TABLET 1 ORALLY EVERY 6 HRS PRN MDD4 NOT-TAKING CUSTOM DO NOT USE TRAMADOL 50 MG TABLET 1 TAB(S) ORALLY TWICE A DAY NEEDED, NOTES: PAIN CLINIC NOT-TAKING ZOFRAN 8 MG TABLET 1 TABLET ORALLY ONCE A DAY NEEDED NOT-TAKING FLEXERIL 10 MG 30 10 MG TABLETS ONE TABLET ORALLY EVERY 8 HOURS PRN PAIN, NOTES: ALI NOT-TAKING ZYRTEC ALLERGY 10 MG TABLET 1 TABLET ONCE A DAY ORALLY 30 DAYS NOT-TAKING ALENDRONATE SODIUM 70 TABLET TAKE 1 TABLET BY MOUTH ONCE A WEEK* NEED APPOINTMENT FOR REFILLS* NOT-TAKING SENOKOT S 8.6-50 MG TABLET 2 TABLET IN THE EVENING NEEDED ORALLY QHS, NOTES: NO LONGER USING NOT-TAKING TOLTERODINE TARTRATE 2 MG TABLET 1 TABLET ORALLY TWICE A DAY UNKNOWN CEFUROXIME AXETIL 500 MG TABLET 1 TABLET ORALLY TWICE A DAY, NOTES: URGENT CARE MEDICATION LIST REVIEWED AND RECONCILED WITH THE PATIENT PAST MEDICAL HISTORY B/L LOWER EXTREMITY PAIN RIGHT HIP PAIN H/O DEPRESSION 6-7 YRS AGO. CHRONIC LOWER BACK PAIN WITH DDD - ORTHO/PAIN CLINIC OSTEOPOROSIS-BONE DENSITY (07/2011) REPEAT [id number] BONE DENSITY 12/2013-DUE IN 2015 HYPERLIPIDEMIA MIGRAINE HEADACHES CONSTIPATION, COLONOSCOPY 10/11 NONDEPENDENT TOBACCO USE DISORDER SLEEP APNEA ALLERGIES CELEBREX: EQUILIBRIUM OFF: ALLERGY PENICILLIN (FOR ALLERGIES USE ONLY): HIVES: ALLERGY LATEX (FOR ALLERGY USE ONLY): RASH: ALLERGY REVIEW OF SYSTEMS CONSTITUTIONAL: ANY CHANGE IN YOUR MEDICAL CONDITION? NO . CHILLS NO . FEVER NO . INFECTION: DO YOU HAVE NEW INFECTIONS? NO . DO YOU HAVE HISTORY OF MRSA? NO . MUSCULOSKELETAL: ANY NEW PATTERNS OF PAIN OR NUMBNESS? NO . GASTROENTEROLOGY: ANY NEW CHANGE IN BOWEL CONTROL? YES. PT STATES SHE GETS CONSTIPATED AND WAS RECENTLY TX'D FOR UTI. PT STATES SHE FINISHED ABX LAST SUNDAY, PT STATES URINE IS STILL FOUL SMELLING AND DYSURIA CONTINUES. PT STATES SHE WILL SCHEDULE APPT WITH PCP FOR THIS.&NBSP;. GENITOURINARY: ANY NEW CHANGE IN BLADDER CONTROL? YES. PT REPORTS URINARY INCONTINENCE. PT REPORTS SHE WEARS PADS FOR PROTECTION. . IS THERE A CHANCE YOU COULD BE ? NO . HEMATOLOGY/LYMPH: DO YOU TAKE ANY BLOOD THINNERS? (FOR EXAMPLE- COUMADIN, PLAVIX, AGGRENOX, PLATEL, PRADAXA, OR XARELTO) NO . WHEN WAS YOUR LAST DOSE? DATE: TIME: . NEUROLOGY: HAVE YOU FALLEN IN THE PAST 6 MONTHS? YES. PT STATES SHE TRIPS AND FALLS. PT STATES SHE THINKS THIS IS RELATED TO RIGHT KNEE, S/P RIGHT KNEE REPLACEMENT. PT STATES SHE WAS GIVEN SHOE INSERTS WHICH MAKE HER FEEL UNEVEN. PT STATES SHE STOPPED USING SHOE INSERTS. . ANY NEW EXTREMITY NUMBNESS OR WEAKNESS? NO . CARDIOLOGY: DO YOU HAVE A PACEMAKER OR DEFIBRILLATOR? NO . RESPIRATORY: HAVE YOU BEEN SICK IN THE PAST WEEK? NO . FEVER NO . FLU LIKE SYMPTOMS? NO . COUGH NO . INTEGUMENTARY: DO YOU HAVE ANY RASHES OR OPEN SORES? NO . ALLERGIC/IMMUNO: ARE YOU ALLERGIC TO SHELLFISH OR IV DYE? NO . ANY NEW ALLERGIES? NO . PSYCHIATRIC: DO YOU HAVE THOUGHTS OF HURTING YOURSELF OR SOMEONE ELSE? NO . ARE YOU ABUSED, NEGLECTED, OR IN AN UNSAFE ENVIRONMENT? NO . ENDOCRINOLOGY: ARE YOU DIABETIC? NO . OTHER: DO YOU NEED ANY PRESCRIPTIONS? YES. HYDROCODONE . IF YES, PLEASE LIST: ____ . ANY NEW PROBLEMS WITH YOUR MEDICATIONS? NO . WHEN DID YOU LAST EAT? ____ . WHEN DID YOU LAST DRINK? ____ . WHAT DID YOU LAST DRINK? ____ . NAME OF PERSON DRIVING YOU HOME? ____ . DO YOU HAVE ANY OTHER QUESTIONS OR CONCERNS NO . REVIEWED BY: PROVIDER: KEN CHEEK . VITAL SIGNS WT 108 LBS, HT 59 IN, BMI 21.81 INDEX, BP 144/67 MM HG, HR 70 /MIN, RR 16 /MIN, TEMP 98.1 F, OXYGEN SAT % 97, SAFE IN ENV? (Y/N) YES, NA INITIALS MP, REVIEWED BY: EM. EXAMINATION GENERAL EXAMINATION: LUNGS:LUNG SOUNDS ARE CLEAR. HEART:HEART RATE REGULAR. MUSCULOSKELETAL:*, MUSCLE STRENGTH TESTING /5 BLE. PALPATION: NEGATIVE FOR PAIN OVER L/S SPINE. NEGATIVE FOR PAIN OVER L/S PARASPINALS. DIAGNOSTIC: . ASSESSMENTS BACK PAIN - LUMBAR - 724.2 (PRIMARY) SACROILIITIS - M46.1 CHRONIC PRESCRIPTION OPIATE USE - Z79.891 TREATMENT BACK PAIN - LUMBAR CONTINUE GABAPENTIN CAPSULE, 300 MG, 1 CAPSULE, ORALLY, BID REFILL NORCO TABLET, 7.5-325 MG, 1, ORALLY, EVERY 6 HRS PRN MDD4, 30 DAY(S), 60, REFILLS 0 NOTES: ISTOP REGISTRY REVIEWED AND DEMNOSTRATES COMPLLIANCE. BRINGS IN MEDICATIONS WHICH IS APPROPRIATE FOR WHAT WAS DISPENSED. RECENT URINE TOXICOLOGY REVIEWED. NO UNAUTHORIZED MEDICATIONS. NO ILLICIT SUBSTANCES AND PRESCRIBED MEDICATIONS WERE PRESENT. , RISKS AND BENEFITS OF NARCOTIC/OPIOD MEDICATIONS WERE REVIEWED WITH PATIENT - THIS INCLUDES BUT IS NOT LIMITED TO RISK OF DEPENDANCE/DEVELOPMENT OF ADDICTION, MOOD DISTURBANCE AND DEPRESSION, OSTEOPOROSIS, HORMONAL AND LABIDAL CHANGES, RESPIRATORY DEPRESSION AND . PATIENT IS ADVISED NOT TO DRIVE WHILE ON THESE MEDICATIONS. DISPOSITION & COMMUNICATION FOLLOW UP 4 WEEKS ELECTRONICALLY SIGNED BY ADIA DALTON ON 12/18/2016 AT 09:58 AM EDT DISCLAIMER : THIS IS A VISIT SUMMARY EXTRACTED FROM THE [employer] CHART. IT IS NOT A COPY OF THE [employer] PROGRESS NOTE. KARLA
== END | disposition home or self-care (01) ==
LOC: M PAIN 09:00
PROVIDERS: ATTEND Nurse Practitioner Family
DX: G89.29 Other chronic pain (principal); M46.1 Sacroiliitis, not elsewhere classified; M25.551 Pain in right hip; F33.9 Major depressive disorder, recurrent, unspecified; M51.9 Unspecified thoracic, thoracolumbar and lumbosacral intervertebral disc disorder; M81.0 Age-related osteoporosis without current pathological fracture; E78.5 Hyperlipidemia, unspecified; G43.909 Migraine, unspecified, not intractable, without status migrainosus; K59.00 Constipation, unspecified; G47.30 Sleep apnea, unspecified; Z79.899 Other long term (current) drug therapy; Z79.82 Long term (current) use of aspirin; Z88.0 Allergy status to penicillin; Z88.8 Allergy status to other drugs, medicaments and biological substances; Z91.040 Latex allergy status; Z72.0 Tobacco use

== ENCOUNTER → 2016-12-21 | Outpatient (REF) | payer MEDICARE | LOC: M LAB REF 16:20 | PROVIDERS: ATTEND Nurse Practitioner Family | DX: R10.9 Unspecified abdominal pain (principal) ==

== ENCOUNTER → 2017-01-15 | Outpatient (CLI) | payer MEDICARE ==
--- NOTE | 2017-01-16 02:09 | ECWPNPC ---
PATIENT NAME: DWAYNE PERALTA : 1950 GENDER: FEMALE VISIT DATE: 01/15/2017 DISCHARGE DATE: 01/15/17 1044 VISIT LOCKED DATE TIME: PHYSICIAN: KEN AMEZQUITA RESOURCE: KEN AMEZQUITA REASON FOR APPOINTMENT 1. FOLLOWUP HISTORY OF PRESENT ILLNESS HISTORY OF PRESENT ILLNESS: HERE FOR CHRONIC LBP.CONTINUES WITH C/O CHRONIC ACHING WITH INTERMITTENT SHARP PAIN.CURRENTLY USING HYDROCODONE 7.5MG Q8H PRN PAIN WHICH IS HELPFUL.DENIES SIDE EFFECTS.RATING PAIN VAS 5/10.CURRENTLY BEING TREATED FOR CONSTIPATION.HAS RESPONDED WELL TO LUMBAR FACET BLOCKS IN PAST. PAIN THE PATIENT DESCRIBES THE PAIN... THE PATIENT DESCRIBES THE PAIN... FALL RISK SCREENING: SCREENING :NO FALLS IN THE PAST YEAR CURRENT MEDICATIONS TAKING TRAZODONE HCL 50 MG TABLET 1-2 TABLETS AT BEDTIME ORALLY ONCE A DAY TAKING ZONEGRAN 100 MG CAPSULE 2 CAPS ORALLY ONCE AT NIGHT TAKING CALCIUM 600 MG TABLET 1 TABLET WITH MEALS ORALLY ONCE A DAY TAKING SUMATRIPTAN SUCCINATE 100 MG TABLET 1 TABLET NEEDED ONE TIME ORALLY ONCE A DAY NEEDED TAKING VITAMIN D 2000 UNIT CAPSULE 1 CAPSULE ORALLY ONCE A DAY TAKING ASPIR-81 81 MG TABLET DELAYED RELEASE 1 TABLET ORALLY ONCE A DAY 3 TIMES A WEEK TAKING SALINE NASAL SPRAY 0.65 % SOLUTION 2 DROPS IN EACH NOSTRIL NEEDED NASALLY EVERY 4 HRS NEEDED TAKING SERTRALINE HCL 100 MG TABLET 1 1/2 TABLETS ONCE A DAY ORALLY 30 DAYS TAKING ESTRACE 0.1 MG/GM CREAM 1 GM VAGINAL TWICE WEEKLY TAKING ALENDRONATE 70 70MG TABLET 1 TABLET ORAL ONCE A WEEK...NEEDS AN APPT TAKING OMEPRAZOLE 40MG 40 MG TABLET 1 TABLET ORAL ONCE A DAY...NEEDS AN APPT TAKING LIPITOR 40 MG TABLET 1 TABLET ONCE A DAY... NEEDS TO SCHEDULE AN APPT ORALLY 30 DAYS TAKING GABAPENTIN 300MG CAPSULE 1 CAPSULE ORALLY TWICE A DAY TAKING TIZANIDINE HCL 4 MG TABLET 1 TABLET NEEDED ORALLY THREE TIMES A DAY TAKING NORCO 7.5-325 MG TABLET 1 TABLET NEEDED ORALLY EVERY 6 HRS MDD4 TAKING GABAPENTIN 300 MG CAPSULE 1 CAPSULE ORALLY BID TAKING NORCO 7.5-325 MG TABLET 1 ORALLY EVERY 6 HRS PRN MDD4 NOT-TAKING CUSTOM DO NOT USE TRAMADOL 50 MG TABLET 1 TAB(S) ORALLY TWICE A DAY NEEDED, NOTES: PAIN CLINIC NOT-TAKING ZOFRAN 8 MG TABLET 1 TABLET ORALLY ONCE A DAY NEEDED NOT-TAKING FLEXERIL 10 MG 30 10 MG TABLETS ONE TABLET ORALLY EVERY 8 HOURS PRN PAIN, NOTES: ALI NOT-TAKING ZYRTEC ALLERGY 10 MG TABLET 1 TABLET ONCE A DAY ORALLY 30 DAYS NOT-TAKING ALENDRONATE SODIUM 70 TABLET TAKE 1 TABLET BY MOUTH ONCE A WEEK* NEED APPOINTMENT FOR REFILLS* NOT-TAKING SENOKOT S 8.6-50 MG TABLET 2 TABLET IN THE EVENING NEEDED ORALLY QHS, NOTES: NO LONGER USING NOT-TAKING TOLTERODINE TARTRATE 2 MG TABLET 1 TABLET ORALLY TWICE A DAY UNKNOWN CEFUROXIME AXETIL 500 MG TABLET 1 TABLET ORALLY TWICE A DAY, NOTES: URGENT CARE MEDICATION LIST REVIEWED AND RECONCILED WITH THE PATIENT PAST MEDICAL HISTORY B/L LOWER EXTREMITY PAIN RIGHT HIP PAIN H/O DEPRESSION 6-7 YRS AGO. CHRONIC LOWER BACK PAIN WITH DDD - ORTHO/PAIN CLINIC OSTEOPOROSIS-BONE DENSITY (07/2011) REPEAT [id number] BONE DENSITY 12/2013-DUE IN 2015 HYPERLIPIDEMIA MIGRAINE HEADACHES CONSTIPATION, COLONOSCOPY 10/11 NONDEPENDENT TOBACCO USE DISORDER SLEEP APNEA ALLERGIES CELEBREX: EQUILIBRIUM OFF: ALLERGY PENICILLIN (FOR ALLERGIES USE ONLY): HIVES: ALLERGY LATEX (FOR ALLERGY USE ONLY): RASH: ALLERGY SURGICAL HISTORY RIGHT OOPHORECTOMY AND TUBE 1979 COLONOSCOPY W/ POLYP- DR. GRAF 2006 LEFT KNEE ARTHROCOPIC SURGERY FOR MENISCAL TEAR ([facility]) 09/2012 APPENDECTOMY/INCIDENTAL TO OVARY REMOVAL 1978- COLONOSCOPY WITH ADENOMATOUS POLYP - DR JOHNSON 09/2014 R KNEE ARTHOSCOPIC 03-04-15 TOTAL RIGHT KNEE 06/28/17 HOSPITALIZATION/MAJOR DIAGNOSTIC PROCEDURE COMPLEX MIGRAINES 10/16/13 REVIEW OF SYSTEMS CONSTITUTIONAL: ANY CHANGE IN YOUR MEDICAL CONDITION? NO . CHILLS NO . FEVER NO . INFECTION: DO YOU HAVE NEW INFECTIONS? NO . DO YOU HAVE HISTORY OF MRSA? NO . MUSCULOSKELETAL: ANY NEW PATTERNS OF PAIN OR NUMBNESS? NO . GASTROENTEROLOGY: ANY NEW CHANGE IN BOWEL CONTROL? YES, CONSTIPATED. PT STATES PCP IS COVERING HER FOR THIS . GENITOURINARY: ANY NEW CHANGE IN BLADDER CONTROL? YES. PT STATES SHE HAS HAD UTI'S, PCP IS COVERING HER FOR THIS&NBSP;. IS THERE A CHANCE YOU COULD BE ? &NBSP;&NBSP; NO&NBSP;. HEMATOLOGY/LYMPH: DO YOU TAKE ANY BLOOD THINNERS? (FOR EXAMPLE- COUMADIN, PLAVIX, AGGRENOX, PLATEL, PRADAXA, OR XARELTO) NO . WHEN WAS YOUR LAST DOSE? DATE: TIME: . NEUROLOGY: HAVE YOU FALLEN IN THE PAST 6 MONTHS? YES, PT STATES SHE TRIPPED ON THE LEG OF A FAN. PT STATES SHE INJURED HERSELF, BUT DID NOT SEEK MEDICAL TX. . ANY NEW EXTREMITY NUMBNESS OR WEAKNESS? NO . CARDIOLOGY: DO YOU HAVE A PACEMAKER OR DEFIBRILLATOR? NO . RESPIRATORY: HAVE YOU BEEN SICK IN THE PAST WEEK? YES, SORE THROAT. PT STATES SHE WAS PRESCRIBED ERYTHROMYCIN BY DR. GREGORIO FOR THIS. . FEVER NO . FLU LIKE SYMPTOMS? NO . COUGH NO . INTEGUMENTARY: DO YOU HAVE ANY RASHES OR OPEN SORES? NO . ALLERGIC/IMMUNO: ARE YOU ALLERGIC TO SHELLFISH OR IV DYE? NO . ANY NEW ALLERGIES? NO . PSYCHIATRIC: DO YOU HAVE THOUGHTS OF HURTING YOURSELF OR SOMEONE ELSE? NO . ARE YOU ABUSED, NEGLECTED, OR IN AN UNSAFE ENVIRONMENT? NO . ENDOCRINOLOGY: ARE YOU DIABETIC? NO . OTHER: DO YOU NEED ANY PRESCRIPTIONS? NO . IF YES, PLEASE LIST: ____ . ANY NEW PROBLEMS WITH YOUR MEDICATIONS? NO . WHEN DID YOU LAST EAT? ____ . WHEN DID YOU LAST DRINK? ____ . WHAT DID YOU LAST DRINK? ____ . NAME OF PERSON DRIVING YOU HOME? ____ . DO YOU HAVE ANY OTHER QUESTIONS OR CONCERNS NO . REVIEWED BY: PROVIDER: KEN CHEEK . VITAL SIGNS WT 108.8 LBS, HT 59 IN, BMI 21.97 INDEX, BP 127/70 MM HG, HR 61 /MIN, RR 16 /MIN, TEMP 96.1 F, OXYGEN SAT % 100%, SAFE IN ENV? (Y/N) Y, NA INITIALS SC 10:11, REVIEWED BY: EM. EXAMINATION GENERAL EXAMINATION: LUNGS:LUNG SOUNDS ARE CLEAR. HEART:HEART RATE REGULAR. MUSCULOSKELETAL:*, MUSCLE STRENGTH TESTING 5/5 BLE. PALPATION: NEGATIVE FOR PAIN OVER L/S SPINE. NEGATIVE FOR PAIN OVER L/S PARASPINALS. DIAGNOSTIC: . ASSESSMENTS BACK PAIN - LUMBAR - 724.2 (PRIMARY) SACROILIITIS - M46.1 CHRONIC PRESCRIPTION OPIATE USE - Z79.891 TREATMENT BACK PAIN - LUMBAR CONTINUE GABAPENTIN CAPSULE, 300MG, 1 CAPSULE, ORALLY, TWICE A DAY REFILL NORCO TABLET, 7.5-325 MG, 1 TABLET NEEDED, ORALLY, EVERY 6 HRS MDD4, 30 DAY(S), 120, REFILLS 0 NOTES: ISTOP REGISTRY REVIEWED AND DEMNOSTRATES COMPLLIANCE. BRINGS IN MEDICATIONS WHICH IS APPROPRIATE FOR WHAT WAS DISPENSED. RECENT URINE TOXICOLOGY REVIEWED. NO UNAUTHORIZED MEDICATIONS. NO ILLICIT SUBSTANCES AND PRESCRIBED MEDICATIONS WERE PRESENT. , RISKS AND BENEFITS OF NARCOTIC/OPIOD MEDICATIONS WERE REVIEWED WITH PATIENT - THIS INCLUDES BUT IS NOT LIMITED TO RISK OF DEPENDANCE/DEVELOPMENT OF ADDICTION, MOOD DISTURBANCE AND DEPRESSION, OSTEOPOROSIS, HORMONAL AND LABIDAL CHANGES, RESPIRATORY DEPRESSION AND . PATIENT IS ADVISED NOT TO DRIVE WHILE ON THESE MEDICATIONS. PROCEDURE CODES FA211 ESTABILISHED PATIENT LOCATED WITHIN [facility] CHARGE DISPOSITION & COMMUNICATION FOLLOW UP 3 MONTHS ELECTRONICALLY SIGNED BY ADIA DALTON ON 01/15/2017 AT 01:15 PM EDT DISCLAIMER : THIS IS A VISIT SUMMARY EXTRACTED FROM THE [employer] CHART. IT IS NOT A COPY OF THE PATHSENSORSINICAL[employer]KS PROGRESS NOTE. KARLA
== END | disposition home or self-care (01) ==
LOC: M PAIN 09:40
PROVIDERS: ATTEND Nurse Practitioner Family
DX: G89.29 Other chronic pain (principal); M46.1 Sacroiliitis, not elsewhere classified; F33.9 Major depressive disorder, recurrent, unspecified; M54.5 Low back pain; M85.9 Disorder of bone density and structure, unspecified; E78.5 Hyperlipidemia, unspecified; G47.30 Sleep apnea, unspecified; Z79.899 Other long term (current) drug therapy; Z79.82 Long term (current) use of aspirin; Z88.0 Allergy status to penicillin; Z88.8 Allergy status to other drugs, medicaments and biological substances; Z91.040 Latex allergy status

== ENCOUNTER → 2017-01-22 | Outpatient (REF) | payer MEDICARE ==
[2017-01-22 19:59] LABS: FOLATE 18.7 NG/ML
== END ==
LOC: M LAB REF 16:38
PROVIDERS: ATTEND Nurse Practitioner Family
DX: R41.3 Other amnesia (principal)

== ENCOUNTER → 2017-04-17 | Outpatient (CLI) | payer MEDICARE ==
[~2017-04-17] MED LIST changes: -ATOR40TA PO; +ATOR40TA75 PO; -COUM2.5T11 PO; +COUM2.5T17 PO; -NORC7.5T PO; +NORC7.5T35 PO; +PERC5TAB12 PO; -PERC5TAB6 PO; -VITA100037 PO; +VITA100067 PO
--- NOTE | 2017-05-07 01:07 | ECWPNPC ---
PATIENT NAME: DWAYNE PERALTA : 1950 GENDER: FEMALE VISIT DATE: 04/17/2017 DISCHARGE DATE: 04/17/17 1052 VISIT LOCKED DATE TIME: PHYSICIAN: KEN AMEZQUITA RESOURCE: KEN AMEZQUITA REASON FOR APPOINTMENT 1. FOLLOWUP HISTORY OF PRESENT ILLNESS HISTORY OF PRESENT ILLNESS: HERE FOR CHRONIC LBP.CONTINUES WITH C/O CHRONIC ACHING WITH INTERMITTENT SHARP PAIN R>L.HAS BEEN HAVING A FLARE UP LBP LATELY.REPORTS EPISODE A FEW DAYS AGO AND HAD TO BE IN BED W HEATING PAD.CURRENTLY USING HYDROCODONE 7.5MG Q8H PRN PAIN WHICH IS HELPFUL.DENIES SIDE EFFECTS.RATING PAIN VAS 5/10.HAS RESPONDED WELL TO RIGHT SIJ IN PAST.DISCUSSED TREATMENT OPTIONS. PAIN THE PATIENT DESCRIBES THE PAIN... THE PATIENT DESCRIBES THE PAIN... THE PATIENT DESCRIBES THE PAIN... FALL RISK SCREENING: SCREENING :NO FALLS IN THE PAST YEAR CURRENT MEDICATIONS TAKING TRAZODONE HCL 50 MG TABLET 3 TABLETS AT BEDTIME ORALLY ONCE A DAY TAKING ZONEGRAN 100 MG CAPSULE 2 CAPS ORALLY ONCE AT NIGHT TAKING CALCIUM 600 MG TABLET 1 TABLET WITH MEALS ORALLY ONCE A DAY TAKING SUMATRIPTAN SUCCINATE 100 MG TABLET 1 TABLET NEEDED ONE TIME ORALLY ONCE A DAY NEEDED TAKING VITAMIN D 2000 UNIT CAPSULE 1 CAPSULE ORALLY ONCE A DAY TAKING ASPIR-81 81 MG TABLET DELAYED RELEASE 1 TABLET ORALLY ONCE A DAY 3 TIMES A WEEK TAKING SALINE NASAL SPRAY 0.65 % SOLUTION 2 DROPS IN EACH NOSTRIL NEEDED NASALLY EVERY 4 HRS NEEDED TAKING SERTRALINE HCL 100 MG TABLET 2 TABLETS ONCE A DAY ORALLY 30 DAYS TAKING ESTRACE 0.1 MG/GM CREAM 1 GM VAGINAL TWICE WEEKLY TAKING ALENDRONATE 70 70MG TABLET 1 TABLET ORAL ONCE A WEEK...NEEDS AN APPT TAKING OMEPRAZOLE 40MG 40 MG TABLET 1 TABLET ORAL ONCE A DAY...NEEDS AN APPT TAKING LIPITOR 40 MG TABLET 1 TABLET 3 TIMES A WEEK TAKING TIZANIDINE HCL 4 MG TABLET 1 TABLET NEEDED ORALLY THREE TIMES A DAY TAKING GABAPENTIN 300 MG CAPSULE 1 CAPSULE ORALLY BID TAKING NORCO 7.5-325 MG TABLET 1 ORALLY EVERY 6 HRS PRN MDD4 NOT-TAKING GABAPENTIN 300MG CAPSULE 1 CAPSULE ORALLY TWICE A DAY NOT-TAKING NORCO 7.5-325 MG TABLET 1 TABLET NEEDED ORALLY EVERY 6 HRS MDD4 NOT-TAKING CUSTOM DO NOT USE TRAMADOL 50 MG TABLET 1 TAB(S) ORALLY TWICE A DAY NEEDED, NOTES: PAIN CLINIC NOT-TAKING ZOFRAN 8 MG TABLET 1 TABLET ORALLY ONCE A DAY NEEDED NOT-TAKING FLEXERIL 10 MG 30 10 MG TABLETS ONE TABLET ORALLY EVERY 8 HOURS PRN PAIN, NOTES: ALI NOT-TAKING ZYRTEC ALLERGY 10 MG TABLET 1 TABLET ONCE A DAY ORALLY 30 DAYS NOT-TAKING ALENDRONATE SODIUM 70 TABLET TAKE 1 TABLET BY MOUTH ONCE A WEEK* NEED APPOINTMENT FOR REFILLS* NOT-TAKING SENOKOT S 8.6-50 MG TABLET 2 TABLET IN THE EVENING NEEDED ORALLY QHS, NOTES: NO LONGER USING NOT-TAKING TOLTERODINE TARTRATE 2 MG TABLET 1 TABLET ORALLY TWICE A DAY UNKNOWN CEFUROXIME AXETIL 500 MG TABLET 1 TABLET ORALLY TWICE A DAY, NOTES: URGENT CARE MEDICATION LIST REVIEWED AND RECONCILED WITH THE PATIENT PAST MEDICAL HISTORY B/L LOWER EXTREMITY PAIN RIGHT HIP PAIN H/O DEPRESSION 6-7 YRS AGO. CHRONIC LOWER BACK PAIN WITH DDD - [facility]TH[facility]/PAIN CLINIC OSTEOPOROSIS-BONE DENSITY (07/2011) REPEAT [id number] BONE DENSITY 12/2013-DUE IN 2015 HYPERLIPIDEMIA MIGRAINE HEADACHES CONSTIPATION, COLONOSCOPY 10/11 NONDEPENDENT TOBACCO USE DISORDER SLEEP APNEA ALLERGIES CELEBREX: EQUILIBRIUM OFF: ALLERGY PENICILLIN (FOR ALLERGIES USE ONLY): HIVES: ALLERGY LATEX (FOR ALLERGY USE ONLY): RASH: ALLERGY SOCIAL HISTORY GENERAL: TOBACCO USE ARE YOU A:NONSMOKER MANDAEN [id number] JEW LANGUAGE LANGUAGES SPOKEN:ICELANDIC LEARNING BARRIERS / SPECIAL NEEDS BARRIERS TO LEARNING?NO HEARING IMPAIRED?NO VISION IMPAIRED?YES :CORRECTIVE LENSES COGNITIVELY IMPAIRED?NO READINESS TO LEARN?YES LEARNING PREFERENCES?NO LEARNING CAPABILITIES PRESENT?YES EMOTIONAL BARRIERS?NO SPECIAL DEVICES?NO MEDICAL INVESTIGATOR NEEDED?NO NEW PATIENT PAIN DIARY TODAY'S VISITNOTES FROM 0-10, WHAT LEVEL IS YOUR PAIN TODAY?0 PAIN CLINIC PFS, CLERGY, PUBLIC HEALTH REFERRALS PFS REFERRAL NEEDED?NO CLERGY REFERRAL NEEDED?NO PUBLIC HEALTH REFERRAL NEEDED?NO WAS THE PROVIDER NOTIFIED OF ANY PERTINENT INFO?NO HAS THE PATIENT BEEN EDUCATED REGARDING HIS/HER PLAN OF CARE?YES HAS THE PATIENT BEEN EDUCATED REGARDING PAIN, THE RISK FOR PAIN, THE IMPORTANCE OF EFFECTIVE PAIN MANAGEMENT, AND THE PAIN ASSESSMENT PROCESS?YES REVIEW OF SYSTEMS REVIEWED BY: PROVIDER: KEN CHEEK . CONSTITUTIONAL: ANY CHANGE IN YOUR MEDICAL CONDITION? NO . CHILLS NO . FEVER NO . INFECTION: DO YOU HAVE NEW INFECTIONS? NO . DO YOU HAVE HISTORY OF MRSA? NO . MUSCULOSKELETAL: ANY NEW PATTERNS OF PAIN OR NUMBNESS? YES, BULGING LOW MID BACK AND RIGHT HIP PAIN. RECEIVED AN INJECTION IN RIGHT HIP YESTERDAY AT [facility]. . GASTROENTEROLOGY: ANY NEW CHANGE IN BOWEL CONTROL? NO . GENITOURINARY: ANY NEW CHANGE IN BLADDER CONTROL? NO . IS THERE A CHANCE YOU COULD BE ? NO . HEMATOLOGY/LYMPH: DO YOU TAKE ANY BLOOD THINNERS? (FOR EXAMPLE- COUMADIN, PLAVIX, AGGRENOX, PLATEL, PRADAXA, OR XARELTO) NO . WHEN WAS YOUR LAST DOSE? DATE: TIME: . NEUROLOGY: HAVE YOU FALLEN IN THE PAST 6 MONTHS? YES . ANY NEW EXTREMITY NUMBNESS OR WEAKNESS? NO . CARDIOLOGY: DO YOU HAVE A PACEMAKER OR DEFIBRILLATOR? NO . RESPIRATORY: HAVE YOU BEEN SICK IN THE PAST WEEK? NO . FEVER NO . FLU LIKE SYMPTOMS? NO . COUGH NO . INTEGUMENTARY: DO YOU HAVE ANY RASHES OR OPEN SORES? NO . ALLERGIC/IMMUNO: ARE YOU ALLERGIC TO SHELLFISH OR IV DYE? NO . ANY NEW ALLERGIES? NO . PSYCHIATRIC: DO YOU HAVE THOUGHTS OF HURTING YOURSELF OR SOMEONE ELSE? NO . ARE YOU ABUSED, NEGLECTED, OR IN AN UNSAFE ENVIRONMENT? NO . ENDOCRINOLOGY: ARE YOU DIABETIC? NO . OTHER: DO YOU NEED ANY PRESCRIPTIONS? NO . IF YES, PLEASE LIST: ____ . ANY NEW PROBLEMS WITH YOUR MEDICATIONS? NO . WHEN DID YOU LAST EAT? ____ . WHEN DID YOU LAST DRINK? ____ . WHAT DID YOU LAST DRINK? ____ . NAME OF PERSON DRIVING YOU HOME? ____ . DO YOU HAVE ANY OTHER QUESTIONS OR CONCERNS NO . VITAL SIGNS WT 104.2 LBS, HT 59 IN, BMI 21.04 INDEX, BP 138/65 MM HG, HR 59 /MIN, RR 16 /MIN, TEMP 97.6 F, OXYGEN SAT % 97%, REVIEWED BY: MJ (DONE AT 1018). EXAMINATION GENERAL EXAMINATION: LUNGS:LUNG SOUNDS ARE CLEAR. HEART:HEART RATE REGULAR. MUSCULOSKELETAL:*, MUSCLE STRENGTH TESTING 5/5 BLE. PALPATION: NEGATIVE FOR PAIN OVER L/S SPINE. SPECIFIC POINT TENDERNESS OVER RIGHT SIJ. DIAGNOSTIC: . ASSESSMENTS BACK PAIN - LUMBAR - 724.2 (PRIMARY) SACROILIITIS - M46.1 CHRONIC PRESCRIPTION OPIATE USE - Z79.891 TREATMENT BACK PAIN - LUMBAR NOTES: RIGHT SIJ, ISTOP REGISTRY REVIEWED AND DEMNOSTRATES COMPLLIANCE. BRINGS IN MEDICATIONS WHICH IS APPROPRIATE FOR WHAT WAS DISPENSED. RECENT URINE TOXICOLOGY REVIEWED. NO UNAUTHORIZED MEDICATIONS. NO ILLICIT SUBSTANCES AND PRESCRIBED MEDICATIONS WERE PRESENT. , RISKS AND BENEFITS OF NARCOTIC/OPIOD MEDICATIONS WERE REVIEWED WITH PATIENT - THIS INCLUDES BUT IS NOT LIMITED TO RISK OF DEPENDANCE/DEVELOPMENT OF ADDICTION, MOOD DISTURBANCE AND DEPRESSION, OSTEOPOROSIS, HORMONAL AND LABIDAL CHANGES, RESPIRATORY DEPRESSION AND . PATIENT IS ADVISED NOT TO DRIVE WHILE ON THESE MEDICATIONS. PREVENTIVE MEDICINE PAIN CLINIC TEACHING: PROCEDURE TEACHING PRE-PROCEDURE TEACHING DONE AND PATIENT VERBALIZES UNDERSTANDING.. PROCEDURE CODES FA211 ESTABILISHED PATIENT [facility] CHARGE DISPOSITION & COMMUNICATION FOLLOW UP 2WK POST (REASON: RIGHT SIJ) ELECTRONICALLY SIGNED BY ADIA DALTON ON 04/30/2017 AT 10:11 AM EDT DISCLAIMER : THIS IS A VISIT SUMMARY EXTRACTED FROM THE [employer] CHART. IT IS NOT A COPY OF THE [employer] PROGRESS NOTE. KARLA
== END ==
LOC: M PAIN 09:45
PROVIDERS: ATTEND Nurse Practitioner Family
DX: M46.1 Sacroiliitis, not elsewhere classified (principal); G89.29 Other chronic pain; M54.5 Low back pain; Z79.891 Long term (current) use of opiate analgesic; Z79.899 Other long term (current) drug therapy; Z79.82 Long term (current) use of aspirin; Z88.0 Allergy status to penicillin; Z88.8 Allergy status to other drugs, medicaments and biological substances; Z91.040 Latex allergy status

== ENCOUNTER 2017-04-25 09:40 | Outpatient (RCR) | payer MEDICARE, MEDICAID | END 2017-04-28 | LOC: M PT 09:40 | PROVIDERS: ATTEND Physician Assistant | DX: Z51.89 Encounter for other specified aftercare (principal); M70.61 Trochanteric bursitis, right hip | CPT/HCPCS: 97162; G8978; G8979 ==

== ENCOUNTER 2017-05-24 12:15 | Outpatient (RCR) | payer MEDICARE, MEDICAID | END 2017-05-29 | LOC: M PT 12:15 | PROVIDERS: ATTEND Physician Assistant | DX: M70.61 Trochanteric bursitis, right hip (principal); Z51.89 Encounter for other specified aftercare ==

== ENCOUNTER → 2017-06-11 | Outpatient (CLI) | payer MEDICARE, MEDICAID ==
[~2017-06-11] MED LIST changes: +BUPIVACAINE HCL 0.25% 30 ML VIAL As Ordered ONE; +ISOVUE-M 300 61% 15ML VIAL (Q9967) As Ordered ONE; +LIDOCAINE 1% SDV INJ 30 ML VIAL As Ordered ONE; +TRIAMCINOLONE ACETONIDE SUSP 40 MG/ML VIAL (J3301) As Ordered ONE; +diazePAM 5 MG TAB As Ordered ONE; +oxyCODONE 5MG TAB As Ordered ONE
--- NOTE | 2017-06-11 13:21 | REP ---
FLUOROSCOPIC GUIDANCE FOR RIGHT SI JOINT INJECTION: 06/11/2017. Clinical history: Low back pain. Findings: Five images from C-arm fluoroscopy provided to Dr. Siddiqi at the pain clinic for injection of the right SI joint. Images show a needle over the inferior one third and then middle of the right SI joint with contrast adjacent to the needle tips. Fluoroscopy time 14 seconds. Signed by Evens Capone MD 06/11/2017 04:33 P
--- NOTE | 2017-06-26 02:02 | ECWPNPC ---
PATIENT NAME: DWAYNE PERALTA : 1950 GENDER: FEMALE VISIT DATE: 06/11/2017 DISCHARGE DATE: 06/11/17 1123 VISIT LOCKED DATE TIME: PHYSICIAN: ESTEPHANIA GUTHRIE RESOURCE: ESTEPHANIA GUTHRIE REASON FOR APPOINTMENT 1. RIGHT SIJ HISTORY OF PRESENT ILLNESS HISTORY OF PRESENT ILLNESS: PAIN THE PATIENT DESCRIBES THE PAIN... FALL RISK SCREENING: SCREENING :NO FALLS IN THE PAST YEAR CURRENT MEDICATIONS TAKING NORCO 7.5-325 MG TABLET 1 ORALLY EVERY 6 HRS PRN MDD4, NOTES: 06/10/17799 TAKING GABAPENTIN 300 MG CAPSULE 1 CAPSULE ORALLY BID, NOTES: 06/10/171999 TAKING TRAZODONE HCL 50 MG TABLET 3 TABLETS AT BEDTIME ORALLY ONCE A DAY, NOTES: 06/10/171999 TAKING ZONEGRAN 100 MG CAPSULE 2 CAPS ORALLY ONCE AT NIGHT, NOTES: 06/10/171999 TAKING CALCIUM 600 MG TABLET 1 TABLET WITH MEALS ORALLY ONCE A DAY, NOTES: 1 WEEK TAKING SUMATRIPTAN SUCCINATE 100 MG TABLET 1 TABLET NEEDED ONE TIME ORALLY ONCE A DAY NEEDED, NOTES: > 2 WEEKS TAKING VITAMIN D 2000 UNIT CAPSULE 1 CAPSULE ORALLY ONCE A DAY, NOTES: 06/10/171999 TAKING ASPIR-81 81 MG TABLET DELAYED RELEASE 1 TABLET ORALLY ONCE A DAY 3 TIMES A WEEK, NOTES: 06/10/17799 TAKING SALINE NASAL SPRAY 0.65 % SOLUTION 2 DROPS IN EACH NOSTRIL NEEDED NASALLY EVERY 4 HRS NEEDED, NOTES: > 1 MONTH TAKING SERTRALINE HCL 100 MG TABLET 1 TABLET , NOTES: 06/10/17799 TAKING ESTRACE 0.1 MG/GM CREAM 1 GM VAGINAL TWICE WEEKLY, NOTES: 06/07/17 TAKING ALENDRONATE 70 70MG TABLET 1 TABLET ORAL ONCE A WEEK...NEEDS AN APPT, NOTES: 06/10/17 1400 TAKING OMEPRAZOLE 40MG 40 MG TABLET 1 TABLET ORAL ONCE A DAY...NEEDS AN APPT, NOTES: 06/10/17 08 TAKING LIPITOR 40 MG TABLET 1 TABLET 3 TIMES A WEEK, NOTES: 06/10/17 08 TAKING TIZANIDINE HCL 4 MG TABLET 1 TABLET NEEDED ORALLY THREE TIMES A DAY, NOTES: > 2 WEEKS NOT-TAKING SENOKOT S 8.6-50 MG TABLET 2 TABLET IN THE EVENING NEEDED ORALLY QHS, NOTES: NO LONGER USING NOT-TAKING GABAPENTIN 300MG CAPSULE 1 CAPSULE ORALLY TWICE A DAY NOT-TAKING NORCO 7.5-325 MG TABLET 1 TABLET NEEDED ORALLY EVERY 6 HRS MDD4 NOT-TAKING CUSTOM DO NOT USE TRAMADOL 50 MG TABLET 1 TAB(S) ORALLY TWICE A DAY NEEDED, NOTES: PAIN CLINIC NOT-TAKING ZOFRAN 8 MG TABLET 1 TABLET ORALLY ONCE A DAY NEEDED NOT-TAKING FLEXERIL 10 MG 30 10 MG TABLETS ONE TABLET ORALLY EVERY 8 HOURS PRN PAIN, NOTES: ALI NOT-TAKING ZYRTEC ALLERGY 10 MG TABLET 1 TABLET ONCE A DAY ORALLY 30 DAYS NOT-TAKING ALENDRONATE SODIUM 70 TABLET TAKE 1 TABLET BY MOUTH ONCE A WEEK* NEED APPOINTMENT FOR REFILLS* NOT-TAKING TOLTERODINE TARTRATE 2 MG TABLET 1 TABLET ORALLY TWICE A DAY NOT-TAKING CEFUROXIME AXETIL 500 MG TABLET 1 TABLET ORALLY TWICE A DAY, NOTES: URGENT CARE MEDICATION LIST REVIEWED AND RECONCILED WITH THE PATIENT PAST MEDICAL HISTORY B/L LOWER EXTREMITY PAIN RIGHT HIP PAIN H/O DEPRESSION 6-7 YRS AGO. CHRONIC LOWER BACK PAIN WITH DDD - [facility]TH[facility]/PAIN CLINIC OSTEOPOROSIS-BONE DENSITY (07/2011) REPEAT [id number] BONE DENSITY 12/2013-DUE IN 2015 HYPERLIPIDEMIA MIGRAINE HEADACHES CONSTIPATION, COLONOSCOPY 10/11 NONDEPENDENT TOBACCO USE DISORDER SLEEP APNEA ALLERGIES CELEBREX: EQUILIBRIUM OFF: ALLERGY PENICILLIN (FOR ALLERGIES USE ONLY): HIVES: ALLERGY LATEX (FOR ALLERGY USE ONLY): RASH: ALLERGY REVIEW OF SYSTEMS REVIEWED BY: PROVIDER: . CONSTITUTIONAL: ANY CHANGE IN YOUR MEDICAL CONDITION? NO . CHILLS NO . FEVER NO . INFECTION: DO YOU HAVE NEW INFECTIONS? NO . DO YOU HAVE HISTORY OF MRSA? NO . MUSCULOSKELETAL: ANY NEW PATTERNS OF PAIN OR NUMBNESS? NO . GASTROENTEROLOGY: ANY NEW CHANGE IN BOWEL CONTROL? NO . GENITOURINARY: ANY NEW CHANGE IN BLADDER CONTROL? NO . IS THERE A CHANCE YOU COULD BE ? NO . HEMATOLOGY/LYMPH: DO YOU TAKE ANY BLOOD THINNERS? (FOR EXAMPLE- COUMADIN, PLAVIX, AGGRENOX, PLATEL, PRADAXA, OR XARELTO) NO . WHEN WAS YOUR LAST DOSE? DATE: TIME: . NEUROLOGY: HAVE YOU FALLEN IN THE PAST 6 MONTHS? NO . ANY NEW EXTREMITY NUMBNESS OR WEAKNESS? NO . CARDIOLOGY: DO YOU HAVE A PACEMAKER OR DEFIBRILLATOR? NO . RESPIRATORY: HAVE YOU BEEN SICK IN THE PAST WEEK? NO . FEVER NO . FLU LIKE SYMPTOMS? NO . COUGH NO . INTEGUMENTARY: DO YOU HAVE ANY RASHES OR OPEN SORES? NO . ALLERGIC/IMMUNO: ARE YOU ALLERGIC TO SHELLFISH OR IV DYE? NO . ANY NEW ALLERGIES? NO . PSYCHIATRIC: DO YOU HAVE THOUGHTS OF HURTING YOURSELF OR SOMEONE ELSE? NO . ARE YOU ABUSED, NEGLECTED, OR IN AN UNSAFE ENVIRONMENT? NO . ENDOCRINOLOGY: ARE YOU DIABETIC? NO . OTHER: DO YOU NEED ANY PRESCRIPTIONS? NO . IF YES, PLEASE LIST: ____ . ANY NEW PROBLEMS WITH YOUR MEDICATIONS? NO . WHEN DID YOU LAST EAT? ____06/10/171999 . WHEN DID YOU LAST DRINK? ____06/10/172199 . WHAT DID YOU LAST DRINK? ____PEPSI . NAME OF PERSON DRIVING YOU HOME? ____BRETT . DO YOU HAVE ANY OTHER QUESTIONS OR CONCERNS NO . VITAL SIGNS WT 104 LBS, HT 59 IN, BMI 21.00 INDEX, BP 126/66 MM HG, HR 59 /MIN, RR 16 /MIN, TEMP 97.4 F, OXYGEN SAT % 99%, SAFE IN ENV? (Y/N) YES, NA INITIALS MO 09:14, REVIEWED BY: VALDEMAR. ASSESSMENTS SACROILIITIS, NOT ELSEWHERE CLASSIFIED - M46.1 (PRIMARY) PROCEDURES PN SI PRE PROCEDURE DIAGNOSIS SACROILIITIS, SACROILIAC JOINT DYSFUNCTION POST PROCEDURE DIAGNOSIS SACROILIITIS, SACROILIAC JOINT DYSFUNCTION PROCEDURE RIGHT SACROILIAC JOINT BLOCK SURGEON DR. ESTEPHANIA GUTHRIE PRE SALES TECHNICAL ENGINEER NONE ANESTHESIA LOCAL PRE PROCEDURE NOTE PATIENT WITH HISTORY OF CHRONIC LOW BACK PAIN. I EVALUATED THE PATIENT AND REVIEWED THE CHART. I WENT OVER THE RISKS, ALTERNATIVES, AND BENEFITS ASSOCIATED WITH THIS PROCEDURE. THE PATIENT WOULD LIKE TO PROCEED AND GAVE CONSENT TO PERFORM THE PROCEDURE. THE PATIENT DENIES UNEXPLAINABLE WEIGHT LOSS, FEVER, CHILLS, OR NEW CHANGES IN URINARY OR BOWEL CONTROL DESCRIPTION OF PROCEDURE THE PATIENT WAS BROUGHT TO THE PROCEDURE ROOM AND PLACED IN THE PRONE POSITION. THE LUMBOSACRAL AREA WAS CLEANED WITH CHLORAPREP SOLUTION AND DRAPED ASEPTICALLY. THE PROCEDURE WAS DONE UNDER STERILE CONDITIONS. I CHECKED LATERALITY AND THE LEVEL WHERE THE PROCEDURE WAS GOING TO BE PERFORMED WITH THE PATIENT AND THE SUPPORTING STAFF AT THE MOMENT OF THE TIME OUT IN THE PROCEDURE ROOM. UNDER FLUOROSCOPIC GUIDANCE, TARGET POINT WAS SELECTED AT THE LOWER BORDER OF THE RIGHT SACROILIAC JOINT. TARGET POINT WAS SELECTED AFTER MEDIAL ROTATION AND TILT OF THE MAGNIFIER OF THE C-ARM. LIDOCAINE WAS USED TO NUMB THE SKIN AND SUBCUTANEOUS TISSUE BELOW IT. A SPINAL NEEDLE, 22-GAUGE, WAS ADVANCED UNDER FLUOROSCOPIC GUIDANCE AND FOLLOWING PATIENT FEEDBACK UNTIL THE TARGET AREA WAS TOUCHED. THE POSITION OF THE NEEDLE WAS VERIFIED WITH AP AND LATERAL VIEWS. AFTER PROPER POSITION OF THE NEEDLE WAS ACHIEVED, ISOVUE M DYE 30%, 0.25 ML, WAS INJECTED SHOWING SPREAD OF THE DYE. THEN, A SOLUTION OF 20 MG OF KENALOG WAS INJECTED IN RIGHT JOINT WITH 3 ML OF BUPIVACAINE 0.125%. THERE WAS NO EVIDENCE OF BLOOD, PARESTHESIA OR CEREBROSPINAL FLUID DURING THE PROCEDURE. THE PATIENT WAS SENT TO THE RECOVERY ROOM. THE PATIENT WAS MOVING THE EXTREMITIES AND DOING WELL. THERE WAS NO COMPLICATION DURING THE PROCEDURE. FLUOROSCOPY TIME WAS 14 SECONDS POST PROCEDURE NOTE THE PATIENT WILL BE SEEN IN A FOLLOW UP IN THE NEXT FEW WEEKS. INSTRUCTIONS WERE GIVEN, QUESTIONS WERE ANSWERED, AND THE PATIENT EXPRESSED UNDERSTANDING AND AGREED WITH THE PLAN. I, SCOTT KUMARI, DOCUMENTED THE ABOVE INFORMATION ACTING A SCRIBE FOR DR. GUTHRIE. I HAVE REVIEWED THE ABOVE DOCUMENT, WRITTEN BY SCOTT KUMARI SCRIBE AND I VERIFY THAT IT IS [facility] FLUORO GUIDANCE (PAIN)[id number] PROCEDURE CODES 60165 INJECT SACROILIAC JOINT, MODIFIERS: RT 6045F RADXPS IN END [id number] PXD DISPOSITION & COMMUNICATION FOLLOW UP 3 WEEKS ELECTRONICALLY SIGNED BY ESTEPHANIA GUTHIRE MD ON 06/25/2017 AT 11:04 AM EST DISCLAIMER : THIS IS A VISIT SUMMARY EXTRACTED FROM THE [employer] CHART. IT IS NOT A COPY OF THE [employer] PROGRESS NOTE. MTDD
== END ==
LOC: M PAIN 08:45
PROVIDERS: ATTEND Anesthesiology
DX: G89.29 Other chronic pain (principal); M46.1 Sacroiliitis, not elsewhere classified; M81.0 Age-related osteoporosis without current pathological fracture; E78.5 Hyperlipidemia, unspecified; M85.80 Other specified disorders of bone density and structure, unspecified site; G43.909 Migraine, unspecified, not intractable, without status migrainosus; K59.00 Constipation, unspecified; G47.30 Sleep apnea, unspecified; Z88.0 Allergy status to penicillin; Z91.040 Latex allergy status; Z88.8 Allergy status to other drugs, medicaments and biological substances; Z79.891 Long term (current) use of opiate analgesic; Z79.899 Other long term (current) drug therapy; Z79.82 Long term (current) use of aspirin
CPT/HCPCS: G0260; J3301; Q9967

== ENCOUNTER 2017-06-12 13:45 | Outpatient (RCR) | payer MEDICARE, MEDICAID ==
[~2017-06-12 13:45] MED LIST changes: -BUPIVACAINE HCL 0.25% 30 ML VIAL As Ordered ONE; -ISOVUE-M 300 61% 15ML VIAL (Q9967) As Ordered ONE; -LIDOCAINE 1% SDV INJ 30 ML VIAL As Ordered ONE; -TRIAMCINOLONE ACETONIDE SUSP 40 MG/ML VIAL (J3301) As Ordered ONE; -diazePAM 5 MG TAB As Ordered ONE; -oxyCODONE 5MG TAB As Ordered ONE
== END 2017-06-28 ==
LOC: M PT 13:45
PROVIDERS: ATTEND Physician Assistant
DX: Z51.89 Encounter for other specified aftercare (principal); M70.61 Trochanteric bursitis, right hip
CPT/HCPCS: 97110; 97140; G8978; G8979

== ENCOUNTER → 2017-08-08 | Outpatient (CLI) | payer MEDICARE, MEDICAID | LOC: M PAIN 14:45 | DX: M46.1 Sacroiliitis, not elsewhere classified (principal); F32.9 Major depressive disorder, single episode, unspecified; M81.0 Age-related osteoporosis without current pathological fracture; E78.5 Hyperlipidemia, unspecified; G43.909 Migraine, unspecified, not intractable, without status migrainosus; Z72.0 Tobacco use; G47.30 Sleep apnea, unspecified; Z88.0 Allergy status to penicillin; Z88.8 Allergy status to other drugs, medicaments and biological substances; Z91.040 Latex allergy status; Z79.82 Long term (current) use of aspirin; Z79.891 Long term (current) use of opiate analgesic; Z79.899 Other long term (current) drug therapy; Z96.651 Presence of right artificial knee joint | CPT/HCPCS: G0463 ==

== ENCOUNTER 2017-08-20 09:59 | Day surgery (SDC) | payer MEDICARE, MEDICAID ==
[2017-08-20] MEDS ORDERED: NS 1,000 ML IV (10:30)
[2017-08-20] MEDS ORDERED: PROPOFOL 200 MG/20 ML VIAL As Ordered (10:44)
== END 2017-08-20 11:31 | disposition home or self-care (01) ==
LOC: M OPP 09:59
DX: Z12.11 Encounter for screening for malignant neoplasm of colon (principal); Z86.010 Personal history of colon polyps; K64.0 First degree hemorrhoids; K57.30 Diverticulosis of large intestine without perforation or abscess without bleeding; R00.2 Palpitations; I10 Essential (primary) hypertension; E78.5 Hyperlipidemia, unspecified; K59.00 Constipation, unspecified; K21.9 Gastro-esophageal reflux disease without esophagitis; R12 Heartburn; M81.0 Age-related osteoporosis without current pathological fracture; G43.909 Migraine, unspecified, not intractable, without status migrainosus; M48.00 Spinal stenosis, site unspecified; M51.9 Unspecified thoracic, thoracolumbar and lumbosacral intervertebral disc disorder; Z78.0 Asymptomatic menopausal state; G47.30 Sleep apnea, unspecified; R06.83 Snoring; Z96.651 Presence of right artificial knee joint; Z88.0 Allergy status to penicillin; Z88.8 Allergy status to other drugs, medicaments and biological substances; Z91.040 Latex allergy status; Z79.82 Long term (current) use of aspirin; Z79.899 Other long term (current) drug therapy; Z80.3 Family history of malignant neoplasm of breast; Z87.891 Personal history of nicotine dependence
CPT/HCPCS: G0105

== ENCOUNTER → 2018-04-15 | Outpatient (REF) | payer MEDICARE, MEDICAID ==
[2018-04-15 15:40] LABS: APPEARANCE, URINE HAZY (CLEAR); BACTERIA, URINE AUTO NEGATIVE (NEGATIVE); BILIRUBIN, URINE AUTO NEGATIVE (NEGATIVE); BLOOD, URINE BLOOD NEGATIVE (NEGATIVE); COLOR, URINE YELLOW (YELLOW); GLUCOSE, URINE (UA) AUTO NEGATIVE (NEGATIVE); KETONE, URINE AUTO TRACE mg/dL (NEGATIVE); LEUKOCYTE ESTERASE, URINE AUTO 1+ (NEGATIVE); MUCUS, URINE SMALL (NEGATIVE); NITRITE, URINE AUTO NEGATIVE (NEGATIVE); PROTEIN, URINE AUTO NEGATIVE (NEGATIVE); RBC, URINE AUTO 2 /HPF (0-3); SPECIFIC GRAVITY URINE AUTO 1.017 (1.002-1.035); SQUAMOUS EPITHELIAL CELL UR AU 3 /HPF (0-6); UROBILINOGEN, URINE AUTO 0.2 mg/dL (0.0-2.0); WBC, URINE AUTO 3 /HPF (0-3)
== END ==
LOC: M LAB REF 14:51
DX: N30.00 Acute cystitis without hematuria (principal)
CPT/HCPCS: 81001

== ENCOUNTER → 2018-04-17 | Outpatient (REF) | payer MEDICARE, MEDICAID ==
[2018-04-17 13:29] LABS: BASO % 0.5 % (0.0-1.0); EOS # 0.1 10^3/uL (0.0-0.50); EOS % 1.3 % (0.0-3.0); HEMOGLOBIN 13.4 g/dl (12.0-15.5); IMMATURE GRANULOCYTE % 0.2 % (0-3.0); LYMPH # 1.9 10^3/uL (1.5-4.5); LYMPH % 34.2 % (24.0-44.0); MEAN CORPUSCULAR HEMOGLOBIN 29.5 pg (27.0-33.0); MEAN CORPUSCULAR HGB CONC 32.7 g/dl (32.0-36.5); MEAN CORPUSCULAR VOLUME 90.1 fl (80.0-96.0); MONO # 0.3 10^3/uL (0.0-0.8); MONO % 5.5 % (0.0-5.0); NEUTROPHILS # 3.2 10^3/uL (1.8-7.7); NEUTROPHILS % 58.3 % (36.0-66.0); PLATELET COUNT, AUTOMATED 161 10^3/uL (150-450); RED BLOOD COUNT 4.55 10^6/uL (4.00-5.40); RED CELL DISTRIBUTION WIDTH 12.1 % (11.5-14.5); WHITE BLOOD COUNT 5.5 10^3/uL (4.0-10.0)
[2018-04-17 14:23] LABS: ALBUMIN 4.2 GM/DL (3.2-5.2); ALKALINE PHOSPHATASE 37 U/L (45-117); ALT/SGPT 19 U/L (12-78); ANION GAP 8 MEQ/L (8-16); AST/SGOT 23 U/L (7-37); BILIRUBIN,TOTAL 0.4 MG/DL (0.2-1.0); BLOOD UREA NITROGEN 18 MG/DL (7-18); CALCIUM LEVEL 9.3 MG/DL (8.8-10.2); CARBON DIOXIDE LEVEL 29 MEQ/L (21-32); CHLORIDE LEVEL 107 MEQ/L (98-107); CREATININE FOR GFR 0.92 MG/DL (0.55-1.30); GLOMERULAR FILTRATION RATE > 60.0 (>45); GLUCOSE, FASTING 95 MG/DL (70-100); POTASSIUM SERUM 3.6 MEQ/L (3.5-5.1); SODIUM LEVEL 144 MEQ/L (136-145)
== END ==
LOC: M LABNEURO 11:04
DX: M54.81 Occipital neuralgia (principal); G43.009 Migraine without aura, not intractable, without status migrainosus
CPT/HCPCS: 80053

== ENCOUNTER 2018-07-16 10:15 | Outpatient (RCR) | payer MEDICARE, MEDICAID ==
[~2018-07-16 10:15] MED LIST changes: -ALEN70TA39 PO; +ALEN70TA57 PO; +ASPI1TAB PO; +ATOR1TAB19 PO; +DESV25TA PO; +GABA-843 PO; +LISI10TA4 PO; +TIZA4CAP PO; +TRAZ-160 PO; +VITA500T PO; +ZYRT10CA5 PO; -ZYRT10TA2 PO
== END 2018-07-29 ==
LOC: M PT 10:15
PROVIDERS: ATTEND Nurse Practitioner Women's Health
DX: N39.46 Mixed incontinence (principal)
CPT/HCPCS: 97110; 97140; 97162; G8990; G8991

== ENCOUNTER → 2018-08-08 | Outpatient (CLI) | payer MEDICARE, MEDICAID ==
[2018-08-08 08:06] LABS: BASO % 0.6 % (0.0-1.0); EOS # 0.2 10^3/uL (0.0-0.50); EOS % 3.2 % (0.0-3.0); HEMOGLOBIN 12.6 g/dl (12.0-15.5); LYMPH # 1.6 10^3/uL (1.5-4.5); MEAN CORPUSCULAR HEMOGLOBIN 29.2 pg (27.0-33.0); MEAN CORPUSCULAR HGB CONC 32.3 g/dl (32.0-36.5); MEAN CORPUSCULAR VOLUME 90.3 fl (80.0-96.0); MONO # 0.4 10^3/uL (0.0-0.8); MONO % 7.1 % (0.0-5.0); NEUTROPHILS # 3.2 10^3/uL (1.8-7.7); NEUTROPHILS % 59.9 % (36.0-66.0); PLATELET COUNT, AUTOMATED 143 10^3/uL (150-450); RED BLOOD COUNT 4.32 10^6/uL (4.00-5.40); WHITE BLOOD COUNT 5.3 10^3/uL (4.0-10.0)
[2018-08-08 08:33] LABS: HEMOGLOBIN A1c 5.4 %
[2018-08-08 08:35] LABS: ERYTHROCYTE SEDIMENTATION RATE 8 mm/hr (0-30)
[2018-08-08 08:38] LABS: CHOLESTEROL RISK RATIO 4.49 (<5)
--- NOTE | 2018-08-08 09:49 | REP ---
DUPLEX CAROTID SONOGRAPHY: HISTORY: TIA. SONOGRAPHIC FINDINGS: Antegrade flow was observed in both vertebral arteries. RIGHT CAROTID: The right common carotid artery shows diffuse intimal thickening. There is minimal soft plaquing in the bulb and proximal ICA on the right side on two-dimensional scanning. Color flow and spectral Doppler interrogation are unremarkable on the right. Velocity Chart Right Carotid: PSV EDV Right CCA 62 cm/s Right ICA 94 cm/s 31 cm/s Right ECA 87 cm/s Right ICA/CCA ratio normal 1.5. IMPRESSION: 0-15% narrowing in the right ICA by Doppler velocity criteria. LEFT CAROTID: The left common carotid artery shows mild diffuse intimal thickening. There is no significant plaquing on the left side on two-dimensional scanning. Color flow and spectral Doppler interrogation are unremarkable on the left. Velocity Chart Left Carotid: RIGHT LEFT Left CCA 65 cm/s Left ICA 58 cm/s 19 cm/s Left ECA 57 cm/s Left ICA/CCA ratio normal 0.8. IMPRESSION: No significant plaquing seen on the left. Normal Doppler velocities. 0-15% category narrowing by velocity criteria. Electronically Signed by Boni Paul MD 08/08/2018 10:16 A
== END ==
LOC: M LAB 07:43
PROVIDERS: ATTEND Optometrist
DX: G45.3 Amaurosis fugax (principal); Z79.899 Other long term (current) drug therapy

== ENCOUNTER → 2018-10-03 | Outpatient (CLI) | payer MEDICARE, MEDICAID ==
[2018-10-03 16:53] LABS: BASO % 0.5 % (0.0-1.0); EOS # 0.2 10^3/uL (0.0-0.50); EOS % 1.8 % (0.0-3.0); HEMATOCRIT 37.5 % (36.0-47.0); HEMOGLOBIN 12.2 g/dl (12.0-15.5); LYMPH # 2.1 10^3/uL (1.5-4.5); LYMPH % 25.3 % (24.0-44.0); MEAN CORPUSCULAR HEMOGLOBIN 29.7 pg (27.0-33.0); MEAN CORPUSCULAR HGB CONC 32.5 g/dl (32.0-36.5); MEAN CORPUSCULAR VOLUME 91.2 fl (80.0-96.0); MONO # 0.5 10^3/uL (0.0-0.8); MONO % 5.7 % (0.0-5.0); NEUTROPHILS # 5.4 10^3/uL (1.8-7.7); NEUTROPHILS % 66.2 % (36.0-66.0); PLATELET COUNT, AUTOMATED 127 10^3/uL (150-450); RED BLOOD COUNT 4.11 10^6/uL (4.00-5.40); WHITE BLOOD COUNT 8.2 10^3/uL (4.0-10.0)
[2018-10-03 17:31] LABS: ERYTHROCYTE SEDIMENTATION RATE 8 mm/hr (0-30)
== END ==
LOC: M LRY 12:15
PROVIDERS: ATTEND Physician Assistant
DX: Z96.651 Presence of right artificial knee joint (principal)

== ENCOUNTER 2018-10-10 12:10 | Outpatient (RCR) | payer MEDICARE, MEDICAID | END 2018-10-27 | LOC: M PT 12:10 | PROVIDERS: ATTEND Physician Assistant | DX: G57.02 Lesion of sciatic nerve, left lower limb (principal); G57.01 Lesion of sciatic nerve, right lower limb ==

== ENCOUNTER → 2018-10-11 | Outpatient (REF) | payer MEDICARE, MEDICAID | LOC: M LAB REF 16:05 | PROVIDERS: ATTEND Internal Medicine | DX: R19.7 Diarrhea, unspecified (principal) ==

== ENCOUNTER → 2018-10-23 | Outpatient (CLI) | payer MEDICARE, MEDICAID ==
--- NOTE | 2018-10-23 12:01 | REP ---
THREE-PHASE BONE SCAN: Knee imaging. HISTORY: Presence of right artificial knee. Lateral right knee pain and swelling. Knee replacement 2016 . Patient also relates left knee pain. Comparison right knee radiographs are from June 29, 2016. Technique: 22.0 mCi technetium 99m MDP is injected and standard three-phase imaging was acquired. SCINTIGRAPHIC FINDINGS: Anterior posterior flow images show normal symmetric perfusion. Blood pool images and delayed scan images demonstrate areas of photopenia related to the arthroplasty hardware in the right knee. There is bone/prosthesis interface uptake in the distal femur and proximal tibia associated with the right knee arthroplasty. There is no focal area of increased uptake to suggest loosening or infection. There is minimal medial compartment arthritic pattern uptake in the left knee. No other scintigraphic abnormality. IMPRESSION: No evidence to suggest loosening or infection. Status post right knee arthroplasty. Electronically Signed by Boni Paul MD 10/23/2018 04:01 P
== END ==
LOC: M RAD 07:58
PROVIDERS: ATTEND Physician Assistant
DX: Z96.651 Presence of right artificial knee joint (principal)
CPT/HCPCS: 78315; A9503

== ENCOUNTER → 2018-10-28 | Outpatient (REF) | payer MEDICARE, MEDICAID ==
[2018-10-28 17:26] LABS: BASO % 0.3 % (0.0-1.0); EOS # 0.1 10^3/uL (0.0-0.50); EOS % 1.9 % (0.0-3.0); HEMATOCRIT 38.1 % (36.0-47.0); HEMOGLOBIN 12.3 g/dl (12.0-15.5); LYMPH # 1.7 10^3/uL (1.5-4.5); LYMPH % 29.8 % (24.0-44.0); MEAN CORPUSCULAR HEMOGLOBIN 28.6 pg (27.0-33.0); MEAN CORPUSCULAR HGB CONC 32.3 g/dl (32.0-36.5); MEAN CORPUSCULAR VOLUME 88.6 fl (80.0-96.0); MONO # 0.3 10^3/uL (0.0-0.8); MONO % 5.5 % (0.0-5.0); NEUTROPHILS # 3.6 10^3/uL (1.8-7.7); NEUTROPHILS % 62.3 % (36.0-66.0); PLATELET COUNT, AUTOMATED 148 10^3/uL (150-450); WHITE BLOOD COUNT 5.8 10^3/uL (4.0-10.0)
[2018-10-28 17:30] LABS: ALBUMIN 4.1 GM/DL (3.2-5.2); ALT/SGPT 23 U/L (12-78); BILIRUBIN,TOTAL 0.4 MG/DL (0.2-1.0); BLOOD UREA NITROGEN 14 MG/DL (7-18); CALCIUM LEVEL 8.4 MG/DL (8.8-10.2); CARBON DIOXIDE LEVEL 25 MEQ/L (21-32); CHLORIDE LEVEL 109 MEQ/L (98-107); CHOLESTEROL LEVEL 136 MG/DL (<200); CHOLESTEROL RISK RATIO 2.344 (<5); CREATININE FOR GFR 0.81 MG/DL (0.55-1.30); GLOMERULAR FILTRATION RATE > 60.0 (>45); GLUCOSE, FASTING 84 MG/DL (70-100); HDL CHOLESTEROL 58 MG/DL (>40); LDL CHOLESTEROL 60 MG/DL (<100); NON-HDL-C 78 MG/DL; POTASSIUM SERUM 4.2 MEQ/L (3.5-5.1); SODIUM LEVEL 141 MEQ/L (136-145); TOTAL PROTEIN 6.8 GM/DL (6.4-8.2); TRIGLYCERIDES LEVEL 88 MG/DL (<150)
== END ==
LOC: M LABDRAW1 15:32
PROVIDERS: ATTEND Psychiatry & Neurology Neurology
DX: G45.9 Transient cerebral ischemic attack, unspecified (principal)

== ENCOUNTER 2018-11-21 10:45 | Outpatient (RCR) | payer MEDICARE, MEDICAID ==
[~2018-11-21 10:45] MED LIST changes: -ALEN70TA57 PO; +ALEN70TA74 PO; -ASPI1TAB PO; +ASPI81TA26 PO; +CALC12504 PO; -CALC500T36 PO; +NORC1TAB8 PO; -NORC7.5T35 PO
== END 2018-11-26 ==
LOC: M PT 10:45
PROVIDERS: ATTEND Physician Assistant
DX: M25.552 Pain in left hip (principal); M25.551 Pain in right hip

== ENCOUNTER → 2019-01-02 | Outpatient (CLI) | payer MEDICARE, MEDICAID ==
[~2019-01-02] MED LIST changes: +BREO1INH; +LISI-542; +ROSU20TA4; +SERT-138; -TRAZ-160 PO; +TRAZ-252 PO; +TRAZ1TAB14
--- NOTE | 2019-01-03 02:39 | REP ---
Clinical: Trauma. Technique: Frontal view of the chest with multiple views of the right and left hemithorax. Findings: Frontal view of the chest demonstrates no acute cardiopulmonary process. Multiple views of the right and left hemithorax demonstrates no obvious acute rib fracture or pathology. Impression: Normal bilateral rib series Electronically Signed by Americo Couch MD 01/03/2019 02:31 A
== END ==
LOC: M RAD 16:46
PROVIDERS: ATTEND Psychiatry & Neurology Neurology
DX: R07.89 Other chest pain (principal); W13 Fall from, out of or through building or structure

== ENCOUNTER → 2019-02-04 | Outpatient (REF) | payer MEDICARE, MEDICAID ==
[~2019-02-04] MED LIST changes: -CALC12504 PO; +CALC500T61 PO; -ROSU20TA4; +ROSU20TA5
[2019-02-05 19:22] LABS: PERCENT SATURATION 21.9 % (13.2-45.0)
== END ==
LOC: M LAB REF 18:07
PROVIDERS: ATTEND Internal Medicine
DX: D64.9 Anemia, unspecified (principal)

== ENCOUNTER → 2019-02-07 | Outpatient (REF) | payer MEDICARE, MEDICAID | LOC: M LAB REF 12:39 | PROVIDERS: ATTEND Internal Medicine | DX: R19.7 Diarrhea, unspecified (principal); M54.5 Low back pain; N39.0 Urinary tract infection, site not specified ==

== ENCOUNTER → 2019-05-09 | Outpatient (CLI) | payer MEDICARE ==
[~2019-05-09] MED LIST changes: +D32000TA PO; +LORA-622 PO; -OMEP40CA2 PO; +OMEP40CA97 PO; +PROAAER10 INH; -ROSU20TA5; +ROSU20TA5 PO; -SERT-138; +SERT-138 PO; -TRAZ1TAB14; +TRAZ1TAB14 PO
[2019-05-09 13:18] LABS: BLOOD UREA NITROGEN 13 MG/DL (7-18); CALCIUM LEVEL 8.6 MG/DL (8.8-10.2); CARBON DIOXIDE LEVEL 25 MEQ/L (21-32); CHLORIDE LEVEL 110 MEQ/L (98-107); CREATININE FOR GFR 0.76 MG/DL (0.55-1.30); GLOMERULAR FILTRATION RATE > 60.0 (>39); GLUCOSE, FASTING 84 MG/DL (70-100); POTASSIUM SERUM 3.6 MEQ/L (3.5-5.1); SODIUM LEVEL 142 MEQ/L (136-145)
== END ==
LOC: M LAB 12:12
PROVIDERS: ATTEND Orthopaedic Surgery
DX: M48.00 Spinal stenosis, site unspecified (principal)

== ENCOUNTER 2019-05-20 06:16 | Inpatient (IN) | payer MEDICARE, MEDICAID ==
--- NOTE | 2019-05-14 19:51 | CR ---
DATE OF CONSULTATION: 05/14/2019 REQUESTED BY: Dr. Jasso. REASON FOR CONSULTATION: Preoperative consultation for lumbar fusion 05/20/2019 at [facility]. Dear Dr. Jasso, Thank you for asking me to see Ms. Jane Howell in preoperative consultation. As you know, she is a 69-year-old female, past medical history of migraines, chronic back pain, depression, presenting for preoperative optimization with the following concerns. Patient reports she has chronic pain radiating into right lower extremity. It feels heavy. It is fatiguing, effects her activities and sleep and is eager to proceed with surgical intervention and said that she has used more Vicodin recently. Patient had a sinusitis three weeks ago treated in urgent care, when ear pain became intolerable. She has recovered at this point, is off antibiotic therapy. Patient was being treated for urinary incontinence with oxybutynin. Reports she has not needed the medication and is clinically better. Patient was placed on trazodone for sleep. Feels it is working adequately at the present dose. Patient is on zonisamide and gabapentin for migraines. She takes Imitrex rarely for breakthrough pain and hydrocodone if completely intolerable. Patient does have sinus allergies, uses loratadine and saline spray. She has asthma and only uses ProAir as needed, with a recent normal spirometry. Patient has gastroesophageal reflux disease (GERD). She has been able to be weaned off omeprazole, takes Tums as needed. Patient otherwise reports she is as active as she can be considering her back pain and denies any chest pain, palpitations, syncope or presyncope, fevers or chills, change in bowels. Patient has obstructive sleep apnea (WILBUR) she has been noncompliant with continuous positive airway pressure (C-PAP) and is just getting back on track with it. PAST MEDICAL HISTORY: 1. Migraines. 2. Cervicalgia with spasms. 3. Low back pain, spinal stenosis. 4. Hyperlipidemia. 5. Gastroesophageal reflux disease (GERD). 6. Allergic rhinitis. 7. Vitamin D deficiency. 8. Osteoporosis. 9. Insomnia. 10. Right oophorectomy. 11. Appendectomy. 12. 2, para 2. 13. Tobacco cessation 2013 after 10 years' use. 14. Lacunar infarction per MRI 2018. 15. Amaurosis fugax 2019. 16. Obstructive sleep apnea (WILBUR). 17. Depression. PATIENT'S MEDICATIONS: She is on: - alendronate weekly - baby aspirin daily - gabapentin 300 mg two times a day - glucosamine chondroitin daily - Vicodin as needed for migraine pain - loratadine 10 mg daily as needed - Metamucil as tolerated - oxybutynin as needed - ProAir as needed - rosuvastatin 20 mg daily - saline spray as needed - sertraline 100 mg at bedtime - sumatriptan needed for migraine - tizanidine 4 mg for cervicalgia - trazodone 100 mg at bedtime for sleep - Tums as needed for dyspepsia - zonisamide 100 mg two pills at bedtime DRUG ALLERGIES: PENICILLIN, CELEBREX, LATEX. SOCIAL HISTORY: Disabled. Lives alone. Two children. Multiple grandchildren. Former smoker, quit in 2012. FAMILY HISTORY: Mother from heart failure. Father from cirrhosis. Two brothers with heart attacks; one had kidney failure. One son from hypertension and alcohol. PHYSICAL EXAMINATION: No acute distress. VITAL SIGNS: Weight 112 with a body mass index (BMI) of 23, oxygen saturation is 93%, blood pressure 132/70, with a heart rate of 58. HEENT EXAM: Head is normocephalic. Neck is supple. Pupils equal, reactive to light. Extraocular movements are intact. She has no thyromegaly, jugular venous distention (JVD) or carotid bruits. RESPIRATORY: Clear to auscultation. resonant to percussion. CARDIOVASCULAR: Regular rate and rhythm. No murmur, rub, gallop. BREAST EXAM: Deferred. ABDOMEN: Normoactive bowel sounds, soft, nontender. GYNECOLOGIC: Deferred. EXTREMITIES: She has some early osteoarthritis (OA) changes of the distal interphalangeal (DIP) joint. She has had a right total knee arthroplasty (TKA) and has a lipoma right upper buttocks. NEUROLOGIC: Alert and oriented. Cranial nerves II-XII intact. LABORATORY DATA: EKG 05/13/2019: Sinus bradycardia, rate of 58, axis of 25. Normal MT, QRS, QTC. Normal R-wave progression. No atrial or ventricular hypertrophy. No pathologic Q-waves. Unchanged from previous EKG. Labs 05/09/2019: Normal hemoglobin, metabolic profile. She had a normal complete blood count (CBC) 04/14/2019, normal metabolic profile. Her last lipids were normal, with a total cholesterol 128, 02/04/2019. IMPRESSION: Ms. Jane Howell is a 69-year-old female with cardiovascular risk factors positive for age, hyperlipidemia, presenting with no signs or symptoms indicative of cardiovascular ischemia and is felt to be optimized and at low risk for cardiovascular complications. Risks can be further minimized by the followin. Hyperlipidemia. Continue rosuvastatin perioperatively, including a.m. of surgery, sip of water. Stop aspirin five days before surgery. 2. Low back pain. Take usual medications until surgery. Hold all a.m. of surgery, including glucosamine, gabapentin. 3. Cervicalgia. Follows with neurology. Hold all medications a.m. of surgery. 4. Migraines. Chronic. Stable. Follows with neurology. She will take zonisamide as usual the evening prior to surgery and as needed medications only if needed. 5. Gastroesophageal reflux disease (GERD). Clinically controlled. Use Tums only if needed. 6. Osteoporosis. She will hold her alendronate, calcium and D a.m. of surgery. 7. Anxiety. Continue trazodone and sertraline. Hold perioperatively, but hold a.m. of surgery. 8. Cerebrovascular accident (CVA). Previous lacunar infarction, amaurosis fugax. No recurrent symptoms. Continue to monitor for cardiovascular risk. 9. Asthma. Recent spirometry normal. I have asked her to start using her ProAir two puffs twice a day five days prior to surgical intervention and a.m. of surgery. 10. Obstructive sleep apnea (WILBUR). Strongly recommended resuming continuous positive airway pressure (C-PAP) and bring to surgical intervention. Thank you very much for this consultation.
--- NOTE | 2019-05-16 11:14 | HPE ---
DATE OF ADMISSION: 05/20/2019 CHIEF COMPLAINT: Lumbar degenerative disc disease and spinal stenosis with neurogenic claudication. HISTORY OF PRESENT ILLNESS: Cynthia is a pleasant 69-year-old female with progressively worsening lumbar spinal stenosis with right lower extremity radiculopathy and neurogenic claudication. She has failed to improve with conservative treatment. She has elected for surgery for her continued symptoms. She has pain with weightbearing activities and her activities of daily living. MRI and x-rays of the lumbar spine show L4-5 facet arthropathy, lateral recess spinal stenosis. She has consented for lumbar fusion at L4-[address] Erich Jasso. Medical optimization was performed by Dr. Torres. ALLERGIES: Penicillin, Celebrex and latex. CURRENT MEDICATIONS: - Vicodin 7.5 one to two daily as needed - gabapentin 600 mg three times a day - sertraline 100 mg once a day - tizanidine 4 mg up to four times a day - trazodone 150 mg at night - zonisamide 300 mg two at night - loratadine once a day - baby aspirin once a day - rosuvastatin once a day PAST MEDICAL HISTORY: Includes Hypertension. Anxiety and depression History of transient ischemic attack (TIA). PAST SURGICAL HISTORY: Includes Removal of the right ovary, fallopian tube and appendix. Right knee replacement. SOCIAL HISTORY: This patient is retired. She does not smoke. She rarely drinks alcohol. FAMILY HISTORY: Noncontributory. REVIEW OF SYSTEMS: This patient denies chest pain, heart palpitations, cough, wheezing, difficulty breathing and shortness of breath. She denies abdominal pain, nausea, vomiting, diarrhea or constipation. She denies recent upper respiratory infection or urinary tract infection symptoms. She does complain of persistent pain in the lumbar spine and right lower extremity causing difficulties with her activities of daily living. PHYSICAL EXAMINATION: GENERAL: She is well-nourished, well-developed in no acute distress, alert female patient. She ambulates with a mild limp favoring the right lower extremity. She is not using assistive devices. VITAL SIGNS: She is 59 inches tall, weighs 112.8 pounds with a temperature of 98.1, pulse of 68, respirations of 16, blood pressure 132/60. Neck: Supple without adenopathy or jugular venous distension. LUNGS: Clear to auscultation without rales or wheeze throughout. HEART: Regular rate and rhythm. ABDOMEN: Bowel sounds were present. EXTREMITIES: Examination of back revealed intact skin. She had diminished deep tendon reflexes (DTRs) in the right knee pain. She maintains good strength. LABORATORY DATA: Hemoglobin 12.1, glucose 84, BUN 13, creatinine 0.76. Sodium 142, potassium 3.6. Still pending results on her EKG. IMPRESSION: Symptomatic degenerative disc disease and spinal stenosis at L4-5 with right lower extremity neurogenic claudication. PLAN: Consented for L4-[address] Erich Jasso.
[~2019-05-20] VITALS: Ht 147.3 cm; Wt 50.8 kg
[2019-05-20] MEDS ORDERED: GABAPENTIN 300 MG CAP PO ONE (06:45)
[2019-05-20] MEDS ORDERED: VANCOMYCIN HCL 1,000 MG, VIAL MATE ADAPTER 1 EACH in D5W 250 ML IV ONE ×2 (06:45→20:00)
[2019-05-20] MEDS ORDERED: BUPIVACAINE/EPIN 0.25% 30 ML VIAL As Ordered ONE (07:23)
[2019-05-20] MEDS ORDERED: THROMBIN SOLN 20,000 UNITS KIT As Ordered ONE (07:24)
[2019-05-20] MEDS ORDERED: BUPIVACAINE HCL 0.5% 10 ML VIAL As Ordered ONE (07:24)
[2019-05-20] MEDS ORDERED: TRANEXAMIC ACID 100 MG/ML 10ML VIAL As Ordered ONE (07:24)
[2019-05-20] MEDS ORDERED: VANCOMYCIN HCL 500 MG/10 ML VIAL (J3370) As Ordered ONE (07:25)
[2019-05-20] MEDS ORDERED: EPINEPHrine INJ 1 MG/ML 1ML AMP As Ordered ONE (07:25)
[2019-05-20] MEDS ORDERED: BUPIVACAINE LIPOSOME/PF 1.3% 20ML VIAL (13.3MG/ML)(EXPAREL)(C9290 PER1MG) As Ordered ONE (07:25)
[2019-05-20] MEDS ORDERED: BACITRACIN PWD 50,000 UNITS VIAL As Ordered ONE (07:26)
[2019-05-20] MEDS ORDERED: LR 1,000 ML IV ONE (07:30)
[2019-05-20] MEDS ORDERED: ALBUTEROL SULFATE 2.5 MG/0.5 ML INH NEB SOLN INH ONE (07:30)
[2019-05-20] MEDS ORDERED: MIDAZOLAM INJ 2 MG/2 ML VIAL (J2250) As Ordered ONE (08:17)
[2019-05-20] MEDS ORDERED: dexameTHASONE 4 MG/ML 1ML VIAL (J1100) As Ordered ONE (08:17)
[2019-05-20] MEDS ORDERED: fentaNYL 250 MCG/5 ML INJECTION (J3010) As Ordered ONE (08:17)
[2019-05-20] MEDS ORDERED: LIDOCAINE 2% INJ 100 MG/5 ML SDV (FOR ANES.) As Ordered ONE (08:17)
[2019-05-20] MEDS ORDERED: ROCURONIUM BROMIDE 50 MG/5 ML VIAL As Ordered ONE (08:17)
[2019-05-20] MEDS ORDERED: ONDANSETRON 4MG/2ML VIAL (J2405) As Ordered ONE (08:17)
[2019-05-20] MEDS ORDERED: PROPOFOL 200 MG/20 ML VIAL As Ordered ONE (08:17)
[2019-05-20] MEDS ORDERED: ePHEDrine SULFATE 25 MG/5 ML(5MG/ML) SYRINGE As Ordered ONE (09:30)
[2019-05-20] MEDS ORDERED: ACETAMINOPHEN 1000MG 100ML IV BTL (OFIRMEV) (J0131 PER 10MG) As Ordered ONE (09:36)
[2019-05-20] MEDS ORDERED: SUGAMMADEX SODIUM 500 MG/5 ML VIAL (BRIDION) As Ordered ONE (09:45)
[2019-05-20] MEDS ORDERED: SUMAtriptan SUCCINATE 25 MG TAB PO PRN (11:30)
[2019-05-20] MEDS ORDERED: ACETAMINOPHEN TAB 650MG DOSE (2X325MG) PO PRN (11:30)
[2019-05-20] MEDS ORDERED: IPRATROPIUM 0.03% NASAL SPRAY 30 ML (ATROVENT) PRN (11:30)
[2019-05-20] MEDS ORDERED: oxyCODONE 5MG TAB PO PRN (11:30)
[2019-05-20] MEDS ORDERED: ONDANSETRON 4MG/2ML VIAL (J2405) IV PRN ×2 (11:30)
[2019-05-20] MEDS ORDERED: HYDROMORPHONE HCL 0.5 MG/ 0.5 ML SYRINGE (J1170 PER 1) IV PRN ×2 (11:30)
[2019-05-20] MEDS ORDERED: ALBUTEROL 90 MCG/ACT 8GM HFA INHALER INH PRN (11:30)
[2019-05-20] MEDS ORDERED: fentaNYL 100 MCG/2 ML INJECTION (J3010) IV PRN (11:30)
[2019-05-20] MEDS ORDERED: LR 1,000 ML IV SCH (11:30)
[2019-05-20] MEDS ORDERED: tiZANidine 4 MG TAB PO PRN (11:30)
[2019-05-20] MEDS ORDERED: NORCO, ANEXSIA 5/325MG TABLET (HYDROcodone/ACETAMINOPHEN) PO PRN (11:45)
--- NOTE | 2019-05-20 12:08 | REP ---
Single lateral view of the lumbar spine: 05/20/2019. Indication: Intraoperative guidance. Comparison: 08/11/2013. Findings: The distal tip of the localizing instrument is posterior to the L4/L5 intervertebral disc assuming five lumbar type vertebral bodies. Impression: L4/L5 localization. Electronically Signed by Robin Krueger DO 05/20/2019 12:00 P
[2019-05-20 12:38] VITALS: BP 106/61
[2019-05-20 13:00] VITALS: BP 106/60
[2019-05-20 14:00] VITALS: BP 122/65
[2019-05-20] MEDS: GABAPENTIN 300 MG CAP PO SCH ×2 (15:42→20:29)
[2019-05-20] MEDS: NORCO, ANEXSIA 5/325MG TABLET (HYDROcodone/ACETAMINOPHEN) PO PRN ×2 (15:43→21:58)
[2019-05-20] MEDS: LR 1,000 ML IV SCH ×2 (19:15→21:59)
[2019-05-20] MEDS ORDERED: ZONISAMIDE 100 MG CAP (ZONEGRAN) PO PRN (19:45)
[2019-05-20] MEDS ORDERED: traZODone 100 MG TAB PO PRN (19:45)
[2019-05-20] MEDS ORDERED: ROSUVASTATIN 10 MG TAB (CRESTOR) PO SCH (21:00)
[2019-05-20 22:00] VITALS: BP 129/80
[2019-05-21] VITALS (7 sets, daily range): BP systolic 86–127; BP diastolic 50–65
[2019-05-21] MEDS: NORCO, ANEXSIA 5/325MG TABLET (HYDROcodone/ACETAMINOPHEN) PO PRN ×2 (05:47→11:11)
[2019-05-21] MEDS ORDERED: PERC5TAB12 PO (06:23)
[2019-05-21] MEDS ORDERED: PERCOCET 5MG/325MG TAB PO PRN ×2 (06:45)
--- NOTE | 2019-05-21 08:39 | RO ---
DATE OF PROCEDURE: 05/20/2019 PREOPERATIVE DIAGNOSIS: Lumbar spinal stenosis with lumbar spondylosis and facet arthropathy. POSTOPERATIVE DIAGNOSIS: Lumbar spinal stenosis with lumbar spondylosis and facet arthropathy. PROCEDURE PERFORMED: Posterior lumbar laminectomy L4 for decompression of the thecal sac and exiting nerve root, posterior lumbar a unilateral present. ACTIVITY L5-4 decompression of thecal sac and traversing nerve root. Right lower extremity posterior intertransverse fusion in situ bilateral L4-5 intertransverse type, harvest and placement of left iliac crest morselized bone graft. SURGEON: Dr. Jasso ASSISTING: Rich Mccullough physician financial legal assistant ANESTHESIA: General endotracheal. ESTIMATED BLOOD LOSS: Less than 100 mL replaced with crystalloid. COMPLICATIONS: No complications. INDICATIONS: Right lower extremity neurogenic claudication. MRI evidence of facet arthropathy and significant lateral recess spinal stenosis. Symptoms ongoing for a number of months unresponsive to conservative management. The patient has elected for operative intervention. Consent reviewed in detail including gerald discussion of the pathology involved procedure proposed, alternatives including doing nothing and risks including but not limited to pain, failure, nerve injury, bleeding blood loss, incomplete relief of symptoms and other issues. The patient agrees to proceed. OPERATIVE COURSE: Identified in the holding area site side verified brought to the operating room. General endotracheal anesthesia was administered. She was positioned in the prone position for exposure of lumbar spine. Once I and binding machine operator were comfortable with the patient's positioning she was sterilely prepped and draped in usual fashion for exposure of the lumbar spine. Time-out was accomplished. Next initially I stood on the patient's right Mr. Gonzales on the patient's left. Incision was based on palpation of bony landmarks iliac crest and spinous processes infiltrated with quarter send Marcaine with epinephrine and I made the incision with a 10 blade knife developed down through skin subcuticular tissues to posterior lumbar fascia posterior lumbar fascia was reflected off of the spinous processes of four and five dissection continued along the L4 lamina exposing the L4-5 interspace. A divot was drilled and the L4 inferior lamina. A Poole Hull was placed in the divot and a cross-table lateral x-ray was taken to verify our level. Once this was accomplished we continued dissection over the transverse process of 4 and 5 on the patient's right side. The contralateral side paraspinals were reflected off of the spinous processes and the dissection continued over the 4-5 facet complex and over the L4 and L5 transverse processes. Next Leksell's were utilized to decorticate the posterior lamina of L4 and L5 bilaterally. This bone graft was retained previous as bone graft at this stage the operating microscope was brought in for additional portions of procedure. Mr. Gonzales looked through oculars on the left side. I through oculars on the right side of the scope. We utilized the high-speed bur and a knife. The bur was utilized to implement a right unilateral laminectomy of L4 extending superiorly through the bare area of L4. The medial 15% of the 4-5 facet complex was also removed using the high-speed bur and inferiorly. Dissection continued through the bare area five. Curettes were utilized to elevate ligamentum flavum which was removed using pituitaries and Kerrison punches. The thecal sac was directly visualized subarticular decompression was accomplished. Myotomy was accomplished in the right at 4-5, the traversing root was also traced and decompressed. Next, once this was accomplished, irrigation was accomplished, bleeding was controlled using bipolar cautery. Next the posterior superior iliac spine was exposed through a separate fascial incision. I harvested morselized iliac crest bone graft using curettes. Mr. Gonzales assisted with retractors. Next, once this was accomplished the iliac crest bone graft was retained. I also utilized bur milling mixed with demineralized bone matrix putty. Next, Mr. Gonzales utilized Nik retractors to expose the transverse processes of four and five the patient's left side which were decorticated. Bone graft was placed over the transverse processes on the left side. Similarly on the right side. The transverse processes were again exposed by Mr. Gonzales and we placed morselized iliac crest in the local graft over the transfer processes. Next, irrigation had been accomplished as well as irrigation with capital TXA Exparel solution for postoperative analgesia was accomplished. That was injected in the fascial and subcuticular tissues. Next, posterior lumbar fascia was then reapproximated using interrupted stitch. Nadia fascia with deep stitch deep dermis with interrupted Vicryl stitch. Pernio dressing was applied. The patient was then moved to the supine position on the bed extubated. She was able to be then moved to the recovery room in good condition. For further details please refer to medical record. Mr. Pattonan anticipated in the entirety of the case in capacity of campus administrative assistant dissipated entirety case in capacity of campus administrative assistant.
[2019-05-21] MEDS: METAMUCIL (PSYLLIUM) PACKET PO SCH ×2 (09:00→09:11)
[2019-05-21] MEDS ORDERED: MULTIVITAMINS/MINERALS THERAP 1 TAB PO SCH (09:00)
[2019-05-21] MEDS ORDERED: MOM 30ML SUSPENSION UDC PO SCH (09:00)
[2019-05-21] MEDS ORDERED: MIRALAX *UNIT DOSE* 17GM PACKET PO SCH (09:00)
[2019-05-21] MEDS: GABAPENTIN 300 MG CAP PO SCH (09:11)
== END 2019-05-21 15:20 | disposition home or self-care (01) | DRG 460 ==
LOC: M OR 06:16 → M MS5PR 12:31
PROVIDERS: ADMIT Orthopaedic Surgery; ATTEND Orthopaedic Surgery
PROC: 0SG1071 Fusion of 2 or more Lumbar Vertebral Joints with Autologous Tissue Substitute, Posterior Approach, Posterior Column, Open Approach (ICD-10-PCS; principal; 2019-05-20 07:30)
DX: M48.062 Spinal stenosis, lumbar region with neurogenic claudication (principal); M51.16 Intervertebral disc disorders with radiculopathy, lumbar region; I10 Essential (primary) hypertension; F41.9 Anxiety disorder, unspecified; K21.9 Gastro-esophageal reflux disease without esophagitis; R32 Unspecified urinary incontinence; F32.9 Major depressive disorder, single episode, unspecified; G43.909 Migraine, unspecified, not intractable, without status migrainosus; J45.909 Unspecified asthma, uncomplicated; E55.9 Vitamin D deficiency, unspecified; M81.0 Age-related osteoporosis without current pathological fracture; G47.00 Insomnia, unspecified; G47.33 Obstructive sleep apnea (adult) (pediatric); Z87.891 Personal history of nicotine dependence; Z86.73 Personal history of transient ischemic attack (TIA), and cerebral infarction without residual deficits; Z79.82 Long term (current) use of aspirin; Z79.899 Other long term (current) drug therapy; Z79.891 Long term (current) use of opiate analgesic; Z96.651 Presence of right artificial knee joint; Z88.0 Allergy status to penicillin; Z88.8 Allergy status to other drugs, medicaments and biological substances; Z91.040 Latex allergy status

== ENCOUNTER 2019-06-17 16:19 | Emergency (ER) | payer MEDICARE, MEDICAID ==
[~2019-06-17] VITALS: Ht 147.3 cm; Wt 50.9 kg
[2019-06-17 16:20] VITALS: BP 138/61
== END 2019-06-17 18:00 | disposition left against medical advice (07) ==
LOC: M ED 16:19
DX: Z53.21 Procedure and treatment not carried out due to patient leaving prior to being seen by health care provider (principal)

== ENCOUNTER 2019-06-24 11:36 | Emergency (ER) | payer MEDICARE, MEDICAID ==
[~2019-06-24] VITALS: Ht 147.3 cm; Wt 52.0 kg
[2019-06-24] MEDS ORDERED: OXYB5TAB2 (11:44)
[2019-06-24] MEDS ORDERED: NITR100C2 (11:44)
--- NOTE | 2019-06-24 12:17 | REP ---
Clinical: Right calf pain . Technique: Dominguez scale and color Doppler evaluation using linear high frequency transducer. Findings: Ultrasound examination of the right lower extremity deep venous structures from the common femoral vein to the popliteal vein demonstrates normal compressibility flow and wave patterns in response to respiration and augmentation. There is no evidence for deep venous thrombosis. Impression: No evidence for deep venous thrombosis. Electronically Signed by Americo Couch MD 06/24/2019 12:09 P
--- NOTE | 2019-06-24 13:25 | REP ---
Clinical: Right ankle pain. Technique: AP, lateral, bilateral oblique views of the right ankle. Findings: Generalized age-related changes noted. No overt osteoarthritic changes are identified. Specifically, no osteophytosis, subchondral heterogeneity or cystic changes and no chondrocalcinosis is appreciated. No acute fracture. No swelling. Impression: Essentially age-appropriate examination. Electronically Signed by Americo Couch MD 06/24/2019 01:17 P
[2019-06-24 13:50] VITALS: BP 164/74
== END 2019-06-24 13:58 | disposition home or self-care (01) ==
LOC: M ED 11:36
DX: M25.571 Pain in right ankle and joints of right foot (principal); M79.661 Pain in right lower leg; M19.90 Unspecified osteoarthritis, unspecified site; Z86.73 Personal history of transient ischemic attack (TIA), and cerebral infarction without residual deficits; Z88.0 Allergy status to penicillin; Z88.8 Allergy status to other drugs, medicaments and biological substances; Z91.040 Latex allergy status; Z79.899 Other long term (current) drug therapy; Z79.82 Long term (current) use of aspirin

== ENCOUNTER 2019-09-18 10:45 | Outpatient (RCR) | payer MEDICARE, MEDICAID ==
[~2019-09-18 10:45] MED LIST changes: +NITR100C2; +OXYB-54; +ZONI100C17 PO; -ZONI100C2 PO
== END 2019-09-27 ==
LOC: M PT 10:45
PROVIDERS: ATTEND Physician Assistant
DX: S76.011A Strain of muscle, fascia and tendon of right hip, initial encounter (principal)

== ENCOUNTER 2019-10-07 10:42 | Outpatient (RCR) | payer MEDICARE, MEDICAID | END 2019-10-28 | LOC: M PT 10:42 | PROVIDERS: ATTEND Physician Assistant | DX: S73.101A Unspecified sprain of right hip, initial encounter (principal); W18.30XA Fall on same level, unspecified, initial encounter; Y92.9 Unspecified place or not applicable ==

== ENCOUNTER → 2020-06-15 | Outpatient (CLI) | payer MEDICARE, MEDICAID ==
[~2020-06-15] MED LIST changes: -ASPI81TA85 PO; +ASPI81TA86 PO; +CYCL-707 PO; -CYCL10TA PO; +VITA-243 PO; -VITA500T PO
[2020-06-15 15:38] LABS: PLATELET COUNT, AUTOMATED 131 10^3/uL (150-450)
[2020-06-15 15:46] LABS: INR 0.92; PROTHROMBIN TIME 12.6 SECONDS (12.5-14.3)
== END ==
LOC: M LAB 14:40
PROVIDERS: ATTEND Physician Assistant
DX: M47.817 Spondylosis without myelopathy or radiculopathy, lumbosacral region (principal)

== ENCOUNTER → 2020-06-16 | Outpatient (CLI) | payer MEDICARE, MEDICAID | LOC: M LABSMTC 09:43 | PROVIDERS: ATTEND Physical Medicine & Rehabilitation | DX: Z01.812 Encounter for preprocedural laboratory examination (principal); Z20.828 Contact with and (suspected) exposure to other viral communicable diseases ==

== ENCOUNTER → 2020-11-22 | Outpatient (CLI) | payer MEDICARE, MEDICAID ==
[~2020-11-22] MED LIST changes: -ALEN70TA74 PO; +ALEN70TA82 PO; +GABA-282 PO; -GABA-843 PO; -LISI-542; +LISI-898; +LISI10TA22 PO; -LISI10TA4 PO
--- NOTE | 2020-11-22 14:57 | REP ---
INDICATION: SPONDYLOSIS WITH MYELOPATHY LUMBAR REGION. COMPARISON: 12/30/2007 TECHNIQUE: After the intravenous administration of 21.8 mCi of technetium 99 M MDP a total body bone scan was obtained. FINDINGS: There is a degenerative type uptake pattern seen in the shoulders, elbows, wrists, hands, hips, knees, ankles, and feet. There is a photopenic defect seen in the right knee secondary to previous prosthetic device placement. There is a patchy type degenerative type uptake pattern seen along the spine and in the region of the facet joints and rib aliyah facets. There is a single focus of increased activity seen in the greater trochanteric region of the left femur IMPRESSION: Degenerative type uptake pattern as described above. The single focus of increased radionuclide accumulation seen in the greater trochanteric region of the left femur could be secondary to trochanteric tendono bursitis. MRI is recommended. <Electronically signed by yC Robles > 11/22/20 [id number]
== END ==
LOC: M RAD 11:08
PROVIDERS: ATTEND Physical Medicine & Rehabilitation
DX: R93.7 Abnormal findings on diagnostic imaging of other parts of musculoskeletal system (principal)
CPT/HCPCS: 78306; A9503

== ENCOUNTER → 2020-12-15 | Outpatient (REF) | payer MEDICARE, MEDICAID | LOC: M LAB REF 16:22 | PROVIDERS: ATTEND Internal Medicine | DX: M25.50 Pain in unspecified joint (principal) ==

== ENCOUNTER 2021-03-01 14:49 | Emergency (ER) | payer MEDICARE, MEDICAID ==
[~2021-03-01] VITALS: Ht 144.8 cm; Wt 49.1 kg
[~2021-03-01 14:49] MED LIST changes: +OMEP40CA4 PO; -OMEP40CA97 PO
[2021-03-01] MEDS ORDERED: METOCLOPRAMIDE INJ 10MG/2ML VIAL (J2765 PER 1) IV ONE (15:45)
[2021-03-01] MEDS ORDERED: KETOROLAC 30 MG/ML 1ML VIAL IV ONE (15:45)
[2021-03-01] MEDS ORDERED: OMEP-218 (16:39)
[2021-03-01 18:23] VITALS: BP 118/78
== END 2021-03-01 18:29 | disposition home or self-care (01) ==
LOC: M ED 14:49 → EDBD 14:49 → M ED 18:29
DX: G43.909 Migraine, unspecified, not intractable, without status migrainosus (principal); E78.5 Hyperlipidemia, unspecified; K21.9 Gastro-esophageal reflux disease without esophagitis; G47.30 Sleep apnea, unspecified; F32.9 Major depressive disorder, single episode, unspecified; Z87.891 Personal history of nicotine dependence; Z79.82 Long term (current) use of aspirin; Z79.899 Other long term (current) drug therapy; Z88.0 Allergy status to penicillin; Z88.8 Allergy status to other drugs, medicaments and biological substances; Z91.040 Latex allergy status
CPT/HCPCS: 96374; 96375; 99284; J1885; J2765

== ENCOUNTER → 2021-06-29 | Outpatient (CLI) | payer MEDICARE, MEDICAID ==
[~2021-06-29] MED LIST changes: -LISI-898; +LISI5TAB11; +OMEP-173
== END ==
LOC: M WUC 12:59
PROVIDERS: ATTEND Nurse Practitioner Family
DX: M54.50 Low back pain, unspecified (principal); K59.00 Constipation, unspecified

== ENCOUNTER 2021-12-06 12:00 | Observation (INO) | payer MEDICARE, MEDICAID ==
[~2021-12-06] VITALS: Ht 162.6 cm; Wt 49.9 kg
[~2021-12-06 12:00] MED LIST changes: -ZONI100C17 PO; +ZONI100C67 PO
[2021-12-06 12:22] VITALS: BP 162/72
[2021-12-06 12:30] LABS: BASO % 0.4 % (0.0-1.0); EOS # 0.1 10^3/uL (0.0-0.5); EOS % 2.6 % (0.0-3.0); HEMATOCRIT 37.8 % (36.0-47.0); HEMOGLOBIN 12.4 g/dl (12.0-15.5); LYMPH # 1.7 10^3/uL (1.5-5.0); LYMPH % 32.5 % (24.0-44.0); MEAN CORPUSCULAR HEMOGLOBIN 29.4 pg (27.0-33.0); MEAN CORPUSCULAR HGB CONC 32.8 g/dl (32.0-36.5); MEAN CORPUSCULAR VOLUME 89.6 fl (80.0-96.0); MONO # 0.4 10^3/uL (0.0-0.8); MONO % 7.2 % (2.0-8.0); NEUTROPHILS % 57.1 % (36.0-66.0); PLATELET COUNT, AUTOMATED 146 10^3/uL (150-450); RED BLOOD COUNT 4.22 10^6/uL (4.00-5.40); WHITE BLOOD COUNT 5.3 10^3/uL (4.0-10.0)
[2021-12-06 12:38] LABS: INR 0.9; PROTHROMBIN TIME 12.5 SECONDS (12.7-14.5)
[2021-12-06 12:39] LABS: PARTIAL THROMBOPLASTIN TIME 29.4 SECONDS (25.9-37.0)
[2021-12-06 12:54] LABS: BLOOD UREA NITROGEN 12 MG/DL (7-18); CARBON DIOXIDE LEVEL 25 MEQ/L (21-32); CHLORIDE LEVEL 113 MEQ/L (98-107); CREATININE FOR GFR 0.74 MG/DL (0.55-1.30); GLOMERULAR FILTRATION RATE > 60.0 (>39); GLUCOSE, FASTING 92 MG/DL (70-100); POTASSIUM SERUM 4.1 MEQ/L (3.5-5.1); SODIUM LEVEL 142 MEQ/L (136-145)
[2021-12-06 12:58] LABS: CK-MB VALUE MASS < 1.0 NG/ML (<3.6); CPK CREATINE PHOSPHOKINASE 64 U/L (26-192); MB/CK RELATIVE INDEX 1.56 (< OR =4)
[2021-12-06 13:47] LABS: RSV AMPLIFICATION NEGATIVE (NEGATIVE)
[2021-12-06] MEDS ORDERED: ACETAMINOPHEN TAB 650MG DOSE (2X325MG) PO PRN (15:35)
[2021-12-06 18:13] VITALS: BP 144/67
[2021-12-06] MEDS ORDERED: ZONISAMIDE 100 MG CAP (ZONEGRAN) PO SCH (21:00)
[2021-12-06] MEDS ORDERED: traZODone 50 MG TAB PO SCH (21:00)
[2021-12-06] MEDS ORDERED: SERTRALINE 100 MG TAB PO SCH (21:00)
[2021-12-06 22:00] VITALS: BP 123/60
[2021-12-06] MEDS ORDERED: ALEN70TA82 PO (22:31)
[2021-12-06] MEDS ORDERED: OMEP1CAP73 PO (22:31)
[2021-12-06] MEDS ORDERED: D200CAP3 PO (22:31)
[2021-12-06] MEDS ORDERED: TRAZ-252 PO (22:31)
[2021-12-06] MEDS ORDERED: ZOLO100T PO (22:31)
[2021-12-06] MEDS ORDERED: OXYB-54 PO (22:31)
[2021-12-06] MEDS ORDERED: HOME MED LIST COMPLETE! XX SCH (22:35)
[2021-12-06] MEDS ORDERED: ALBUTEROL 90 MCG/ACT 8GM HFA INHALER INH PRN (22:50)
[2021-12-06] MEDS ORDERED: SUMAtriptan SUCCINATE 25 MG TAB PO PRN (22:50)
[2021-12-06] MEDS: GABAPENTIN 300 MG CAP PO SCH (23:23)
[2021-12-07 03:56] VITALS: BP 140/62
[2021-12-07 06:04] LABS: HEMATOCRIT 34.9 % (36.0-47.0); HEMOGLOBIN 11.9 g/dl (12.0-15.5); MEAN CORPUSCULAR HEMOGLOBIN 30.4 pg (27.0-33.0); MEAN CORPUSCULAR HGB CONC 34.1 g/dl (32.0-36.5); PLATELET COUNT, AUTOMATED 130 10^3/uL (150-450); RED BLOOD COUNT 3.92 10^6/uL (4.00-5.40); WHITE BLOOD COUNT 5.2 10^3/uL (4.0-10.0)
[2021-12-07 06:28] LABS: BLOOD UREA NITROGEN 13 MG/DL (7-18); CALCIUM LEVEL 8.9 MG/DL (8.8-10.2); CARBON DIOXIDE LEVEL 25 MEQ/L (21-32); CHLORIDE LEVEL 115 MEQ/L (98-107); CREATININE FOR GFR 0.84 MG/DL (0.55-1.30); GLOMERULAR FILTRATION RATE > 60.0 (>39); GLUCOSE, FASTING 95 MG/DL (70-100); MAGNESIUM LEVEL 2.4 MG/DL (1.8-2.4); POTASSIUM SERUM 3.7 MEQ/L (3.5-5.1); SODIUM LEVEL 145 MEQ/L (136-145)
[2021-12-07 08:00] VITALS: BP 127/59
[2021-12-07] MEDS ORDERED: ENOXAPARIN 40MG/0.4ML SYRINGE (J1650 PER 10MG) SC SCH (09:00)
[2021-12-07] MEDS ORDERED: oxyBUTYnin *DITROPAN XL* 5 MG TABCR PO SCH (09:00)
[2021-12-07] MEDS ORDERED: OMEPRAZOLE 20MG CAP PO SCH (09:00)
[2021-12-07] MEDS ORDERED: ASPIRIN 81MG ENTERIC TABLET PO SCH (09:00)
[2021-12-07] MEDS ORDERED: LORATADINE 10 MG TAB PO SCH (09:00)
[2021-12-07] MEDS: GABAPENTIN 300 MG CAP PO SCH (09:20)
== END 2021-12-07 13:18 | disposition home or self-care (01) ==
LOC: EDBD 12:00 → M ED 12:00 → M PCU 15:34 → ENRESERV 16:10
PROVIDERS: ADMIT Internal Medicine; ATTEND Internal Medicine
DX: G45.9 Transient cerebral ischemic attack, unspecified (principal); R00.1 Bradycardia, unspecified; I10 Essential (primary) hypertension; F41.9 Anxiety disorder, unspecified; F32.A Depression, unspecified; Z86.73 Personal history of transient ischemic attack (TIA), and cerebral infarction without residual deficits; G43.109 Migraine with aura, not intractable, without status migrainosus; J45.909 Unspecified asthma, uncomplicated; E78.5 Hyperlipidemia, unspecified; K21.9 Gastro-esophageal reflux disease without esophagitis; G89.4 Chronic pain syndrome; Z90.89 Acquired absence of other organs; Z90.721 Acquired absence of ovaries, unilateral; Z90.79 Acquired absence of other genital organ(s); Z96.651 Presence of right artificial knee joint; Z79.899 Other long term (current) drug therapy; Z79.82 Long term (current) use of aspirin; Z88.0 Allergy status to penicillin; Z88.8 Allergy status to other drugs, medicaments and biological substances; Z91.040 Latex allergy status
CPT/HCPCS: 70450; 70544; 70551; 71045; 80047; 80048; 82550; 82553; 83735; 84484; 85025; 85027; 85610; 85730; 87631; 93005; 93041; 93306; 93880; 94760; 96372; 97161; 99285; G0378; J1650

== ENCOUNTER → 2022-03-21 | Outpatient (REF) | payer MEDICARE, MEDICAID ==
[~2022-03-21] MED LIST changes: +D200CAP3 PO; +OMEP1CAP73 PO; +OXYB-54 PO; +ZOLO100T PO
[2022-03-21 16:40] LABS: BACTERIA, URINE SMALL AMOUNT; SQUAMOUS EPITHELIAL CELL URINE SMALL AMOUNT /hpf (SMALL AMT); TRANSITIONAL EPI CELLS, URINE SMALL AMOUNT /hpf
[2022-03-21 16:42] LABS: HYALINE CAST, URINE 0-1 /lpf (0-1); MUCUS, URINE SMALL AMOUNT (NEGATIVE)
== END ==
LOC: M LAB REF 16:04
PROVIDERS: ATTEND Physician Assistant Medical
DX: R10.32 Left lower quadrant pain (principal)

== ENCOUNTER → 2022-04-04 | Outpatient (CLI) | payer MEDICARE, MEDICAID ==
[~2022-04-04] MED LIST changes: +GASTROGRAFIN SOLUTION 30ML (Q9963) As Ordered ONE; +ISOVUE-370 76% 100ML VIAL As Ordered ONE
== END ==
LOC: M RAD 08:14
PROVIDERS: ATTEND Physician Assistant Medical
DX: R10.9 Unspecified abdominal pain (principal); R19.7 Diarrhea, unspecified
CPT/HCPCS: 74177; Q9963; Q9967

== ENCOUNTER → 2022-04-22 | Outpatient (CLI) | payer MEDICARE, MEDICAID ==
[~2022-04-22] MED LIST changes: -GASTROGRAFIN SOLUTION 30ML (Q9963) As Ordered ONE; -ISOVUE-370 76% 100ML VIAL As Ordered ONE
== END ==
LOC: M RAD 13:10
PROVIDERS: ATTEND Physician Assistant Medical
DX: M54.50 Low back pain, unspecified (principal)

== ENCOUNTER → 2022-05-22 | Outpatient (CLI) | payer MEDICARE, MEDICAID ==
[2022-05-22 17:38] LABS: BASO % 0.4 % (0.0-1.0); EOS # 0.6 10^3/uL (0.0-0.5); EOS % 7.1 % (0.0-3.0); HEMATOCRIT 38.8 % (36.0-47.0); HEMOGLOBIN 12.9 g/dl (12.0-15.5); LYMPH # 1.3 10^3/uL (1.5-5.0); MEAN CORPUSCULAR HEMOGLOBIN 30.3 pg (27.0-33.0); MEAN CORPUSCULAR HGB CONC 33.2 g/dl (32.0-36.5); MEAN CORPUSCULAR VOLUME 91.1 fl (80.0-96.0); MONO # 0.5 10^3/uL (0.0-0.8); MONO % 6.4 % (2.0-8.0); NEUTROPHILS # 5.3 10^3/uL (1.5-8.5); NEUTROPHILS % 68.8 % (36.0-66.0); PLATELET COUNT, AUTOMATED 148 10^3/uL (150-450); RED BLOOD COUNT 4.26 10^6/uL (4.00-5.40); WHITE BLOOD COUNT 7.7 10^3/uL (4.0-10.0)
[2022-05-22 18:39] LABS: ERYTHROCYTE SEDIMENTATION RATE 25 mm/hr (0-30)
== END ==
LOC: M PLALAB 14:39
PROVIDERS: ATTEND Physician Assistant
DX: M75.42 Impingement syndrome of left shoulder (principal)

== ENCOUNTER → 2022-06-28 | Outpatient (CLI) | payer MEDICARE, MEDICAID | LOC: M RAD 06:22 | PROVIDERS: ATTEND Physician Assistant | DX: M75.42 Impingement syndrome of left shoulder (principal) | CPT/HCPCS: 78315; A9503 ==

== ENCOUNTER → 2022-09-13 | Outpatient (REF) | payer MEDICARE, MEDICAID ==
[~2022-09-13] MED LIST changes: +CALC250T PO; +MYRB25TA PO; +PROA1AER2 INH; +ULTR5TAB PO
== END ==
LOC: M LAB REF 16:30
PROVIDERS: ATTEND Physician Assistant Medical
DX: R10.11 Right upper quadrant pain (principal)

== ENCOUNTER 2022-09-14 13:52 | Emergency (ER) | payer MEDICARE, MEDICAID ==
[~2022-09-14] VITALS: Ht 144.8 cm; Wt 47.2 kg
[2022-09-14 14:49] LABS: BASO % 0.2 % (0.0-1.0); EOS # 4.6 10^3/uL (0.0-0.5); HEMATOCRIT 42.5 % (36.0-47.0); HEMOGLOBIN 13.7 g/dl (12.0-15.5); LYMPH # 2.2 10^3/uL (1.5-5.0); LYMPH % 17.3 % (24.0-44.0); MEAN CORPUSCULAR HEMOGLOBIN 28.1 pg (27.0-33.0); MEAN CORPUSCULAR HGB CONC 32.2 g/dl (32.0-36.5); MEAN CORPUSCULAR VOLUME 87.3 fl (80.0-96.0); MONO # 0.5 10^3/uL (0.0-0.8); MONO % 3.8 % (2.0-8.0); NEUTROPHILS # 5.1 10^3/uL (1.5-8.5); NEUTROPHILS % 41.2 % (36.0-66.0); PLATELET COUNT, AUTOMATED 152 10^3/uL (150-450); RED BLOOD COUNT 4.87 10^6/uL (4.00-5.40); WHITE BLOOD COUNT 12.5 10^3/uL (4.0-10.0)
[2022-09-14 14:58] LABS: INR 0.93; PROTHROMBIN TIME 12.7 SECONDS (12.5-14.5)
[2022-09-14 14:59] LABS: PARTIAL THROMBOPLASTIN TIME 29.1 SECONDS (24.8-34.2)
[2022-09-14 15:04] LABS: LIPASE 44 U/L (12-53)
[2022-09-14 15:10] LABS: ALBUMIN 3.4 G/DL (3.2-5.2); ALKALINE PHOSPHATASE 53 U/L (46-116); ALT/SGPT 18 U/L (7.0-40); AST/SGOT 31 U/L (<34); BILIRUBIN,DIRECT 0.1 MG/DL (<0.4); BILIRUBIN,TOTAL 0.5 MG/DL (0.3-1.2); BLOOD UREA NITROGEN 12 MG/DL (9-23); CALCIUM LEVEL 8.3 MG/DL (8.3-10.6); CARBON DIOXIDE LEVEL 27 MMOL/L (20-31); CHLORIDE LEVEL 107 MMOL/L (98-107); CK-MB VALUE MASS 2.5 NG/ML (<3.6); CREATININE FOR GFR 0.64 MG/DL (0.55-1.30); GLOMERULAR FILTRATION RATE > 60.0 (>39); GLUCOSE, FASTING 85 MG/DL (74-106); MAGNESIUM LEVEL 1.8 MG/DL (1.8-2.4); POTASSIUM SERUM 3.2 MMOL/L (3.5-5.1); SODIUM LEVEL 142 MMOL/L (136-145); TOTAL PROTEIN 6.1 G/DL (5.7-8.2)
[2022-09-14 15:11] LABS: EOS % 37.3 % (0.0-3.0)
[2022-09-14 15:16] LABS: CPK CREATINE PHOSPHOKINASE 73 U/L (34-145); MB/CK RELATIVE INDEX 3.42 (< OR =4)
[2022-09-14] MEDS ORDERED: POTASSIUM CHLORIDE 10MEQ SR TABLET PO ONE (15:20)
[2022-09-14] MEDS ORDERED: ISOVUE-370 76% 100ML VIAL As Ordered ONE (15:37)
[2022-09-14 16:04] LABS: CK-MB VALUE MASS 1.6 NG/ML (<3.6); MB/CK RELATIVE INDEX 2.71 (< OR =4)
[2022-09-14 18:48] LABS: CK-MB VALUE MASS 1.7 NG/ML (<3.6)
[2022-09-14 18:49] LABS: MB/CK RELATIVE INDEX 3.09 (< OR =4)
[2022-09-14 21:02] VITALS: BP 109/57
== END 2022-09-14 21:02 | disposition home or self-care (01) ==
LOC: M ED 13:52
DX: E87.6 Hypokalemia (principal); R10.9 Unspecified abdominal pain; I10 Essential (primary) hypertension; F41.9 Anxiety disorder, unspecified; F32.9 Major depressive disorder, single episode, unspecified; Z86.73 Personal history of transient ischemic attack (TIA), and cerebral infarction without residual deficits; K76.0 Fatty (change of) liver, not elsewhere classified; Z79.82 Long term (current) use of aspirin; Z79.899 Other long term (current) drug therapy; Z88.0 Allergy status to penicillin; Z88.1 Allergy status to other antibiotic agents; Z91.040 Latex allergy status
CPT/HCPCS: 74177; 80047; 80048; 80076; 82550; 82553; 83690; 83735; 84484; 85025; 85610; 85730; 87507; 93005; 93041; 99285; Q9967

== ENCOUNTER → 2022-10-04 | Outpatient (CLI) | payer MEDICARE, MEDICAID | LOC: M RAD 07:19 | PROVIDERS: ATTEND Physician Assistant Medical | DX: R19.7 Diarrhea, unspecified (principal); R10.11 Right upper quadrant pain ==

== ENCOUNTER → 2022-10-20 | Outpatient (CLI) | payer MEDICARE, MEDICAID ==
[~2022-10-20] MED LIST changes: +ALIG4CAP PO; +POTA-149 PO
== END ==
LOC: M LABSMTC 10:05
PROVIDERS: ATTEND Anesthesiology
DX: Z01.818 Encounter for other preprocedural examination (principal); Z11.52 Encounter for screening for COVID-19

== ENCOUNTER → 2022-11-24 | Outpatient (CLI) | payer MEDICARE, MEDICAID | LOC: M WHC 09:39 | PROVIDERS: ATTEND Internal Medicine | DX: Z12.31 Encounter for screening mammogram for malignant neoplasm of breast (principal); M81.0 Age-related osteoporosis without current pathological fracture ==

== ENCOUNTER → 2022-12-01 | Outpatient (CLI) | payer MEDICARE, MEDICAID ==
[2022-12-01 16:48] LABS: BASO % 0.4 % (0.0-1.0); EOS # 0.1 10^3/uL (0.0-0.5); EOS % 1.1 % (0.0-3.0); HEMATOCRIT 39.2 % (36.0-47.0); HEMOGLOBIN 12.5 g/dl (12.0-15.5); LYMPH % 26.1 % (24.0-44.0); MEAN CORPUSCULAR HEMOGLOBIN 28.9 pg (27.0-33.0); MEAN CORPUSCULAR HGB CONC 31.9 g/dl (32.0-36.5); MEAN CORPUSCULAR VOLUME 90.5 fl (80.0-96.0); MONO # 0.5 10^3/uL (0.0-0.8); MONO % 7.1 % (2.0-8.0); NEUTROPHILS # 4.9 10^3/uL (1.5-8.5); PLATELET COUNT, AUTOMATED 172 10^3/uL (150-450); RED BLOOD COUNT 4.33 10^6/uL (4.00-5.40); WHITE BLOOD COUNT 7.6 10^3/uL (4.0-10.0)
[2022-12-01 17:04] LABS: C REACTIVE PROTEIN QUANTITATIV < 0.40 MG/DL (<1.0)
[2022-12-01 17:08] LABS: FOLATE > 24.00 NG/ML (>5.4); VITAMIN B12 LEVEL 439 PG/ML (211-911)
[2022-12-01 17:10] LABS: ERYTHROCYTE SEDIMENTATION RATE 13 mm/hr (0-30)
[2022-12-07 16:08] LABS: ANCA-ATYPICAL <1:20 titer (Neg:<1:20); ANGIOTENSIN 1 CONVERTING ENZYM 20 U/L (14-82); ANTINUCLEAR ANTIBODIES DIRECT Negative (Negative); CYTOPLASMIC NEUTROP AB ANCA-C <1:20 titer (Neg:<1:20); IgG P18 AB Absent (.); IgG P23 AB Absent (.); IgG P28 AB Absent (.); IgG P30 AB Absent (.); IgG P39 AB Present (.); IgG P41 AB Absent (.); IgG P45 AB Absent (.); IgG P66 AB Absent (.); IgG P93 AB Absent (.); IgM P23 AB Absent (.); IgM P39 AB Absent (.); IgM P41 AB Absent (.); LYME IgG WB INTERPRETATION Negative (.); LYME IgM WB INTERPRETATION Negative (.); LYSOZYME 6.3 ug/mL (3.7-8.5); Methylmalonic Acid 438 nmol/L (0-378); PERINUCLEAR AB ANCA-P <1:20 titer (Neg:<1:20)
== END ==
LOC: M LAB 15:03
PROVIDERS: ATTEND Ophthalmology
DX: H47.092 Other disorders of optic nerve, not elsewhere classified, left eye (principal)

== ENCOUNTER → 2022-12-20 | Outpatient (CLI) | payer MEDICARE, MEDICAID ==
[2022-12-20 14:29] LABS: BLOOD UREA NITROGEN 14 MG/DL (9-23); CALCIUM LEVEL 8.6 MG/DL (8.3-10.6); CARBON DIOXIDE LEVEL 32 MMOL/L (20-31); CHLORIDE LEVEL 108 MMOL/L (98-107); CREATININE FOR GFR 0.79 MG/DL (0.55-1.30); GLOMERULAR FILTRATION RATE > 60.0 (>39); GLUCOSE, FASTING 90 MG/DL (74-106); POTASSIUM SERUM 3.8 MMOL/L (3.5-5.1); SODIUM LEVEL 144 MMOL/L (136-145)
== END ==
LOC: M LAB 13:23
PROVIDERS: ATTEND Ophthalmology
DX: H47.092 Other disorders of optic nerve, not elsewhere classified, left eye (principal)

== ENCOUNTER → 2022-12-22 | Outpatient (CLI) | payer MEDICARE, MEDICAID | LOC: M PLAIMG 07:49 | PROVIDERS: ATTEND Ophthalmology | DX: H47.092 Other disorders of optic nerve, not elsewhere classified, left eye (principal) ==

== ENCOUNTER → 2022-12-29 | Outpatient (CLI) | payer MEDICARE, MEDICAID ==
[~2022-12-29] MED LIST changes: +PROHANCE 279.3MG/ML 5ML VIAL ONE
== END ==
LOC: M PLAIMG 09:11
PROVIDERS: ATTEND Ophthalmology
DX: H47.092 Other disorders of optic nerve, not elsewhere classified, left eye (principal)
CPT/HCPCS: 70543; 70553; A9576

== ENCOUNTER → 2023-01-22 | Outpatient (CLI) | payer MEDICARE, MEDICAID ==
[~2023-01-22] MED LIST changes: -PROHANCE 279.3MG/ML 5ML VIAL ONE; -ROSU20TA5 PO; +ROSU20TA61 PO
[2023-01-22 12:30] LABS: CALCIUM LEVEL 8.6 MG/DL (8.3-10.6)
== END ==
LOC: M LAB 11:09
PROVIDERS: ATTEND Internal Medicine Endocrinology, Diabetes & Metabolism
DX: M81.0 Age-related osteoporosis without current pathological fracture (principal)

== ENCOUNTER 2023-03-08 11:54 | Emergency (ER) | payer MEDICARE, MEDICAID ==
[~2023-03-08] VITALS: Ht 144.8 cm; Wt 48.5 kg
[2023-03-08] MEDS ORDERED: ACETAMINOPHEN TAB 650MG DOSE (2X325MG) PO ONE (15:15)
[2023-03-08 16:40] VITALS: BP 130/70; TEMP 98; O2SAT 98
== END 2023-03-08 16:42 | disposition home or self-care (01) ==
LOC: M ED 11:54
DX: S09.90XA Unspecified injury of head, initial encounter (principal); W01.0XXA Fall on same level from slipping, tripping and stumbling without subsequent striking against object, initial encounter; Y92.002 Bathroom of unspecified non-institutional (private) residence as the place of occurrence of the external cause; Y93.01 Activity, walking, marching and hiking; Y99.8 Other external cause status; M25.531 Pain in right wrist; I25.10 Atherosclerotic heart disease of native coronary artery without angina pectoris; J45.909 Unspecified asthma, uncomplicated; R51.9 Headache, unspecified; Z88.0 Allergy status to penicillin; Z91.040 Latex allergy status; Z79.899 Other long term (current) drug therapy; Z79.82 Long term (current) use of aspirin; Z79.51 Long term (current) use of inhaled steroids

== ENCOUNTER → 2023-05-29 | Outpatient (CLI) | payer MEDICARE, MEDICAID ==
[~2023-05-29] MED LIST changes: +MYRB50TA
== END ==
LOC: M LAB 17:10
PROVIDERS: ATTEND Orthopaedic Surgery
DX: S42.145D Nondisplaced fracture of glenoid cavity of scapula, left shoulder, subsequent encounter for fracture with routine healing (principal)

== ENCOUNTER → 2023-08-06 | Outpatient (REF) | payer MEDICARE, MEDICAID | LOC: M LAB REF 16:39 | PROVIDERS: ATTEND Internal Medicine | DX: R26.89 Other abnormalities of gait and mobility (principal) ==

== ENCOUNTER 2023-08-19 15:38 | Emergency (ER) | payer MEDICARE, MEDICAID ==
[~2023-08-19] VITALS: Ht 144.8 cm; Wt 49.5 kg
[2023-08-19 15:52] VITALS: TEMP 98.3
[2023-08-19] MEDS ORDERED: ACETAMINOPHEN 500 MG TAB PO ONE (15:55)
[2023-08-19 16:13] LABS: BASO % 0.5 % (0.0-1.0); EOS # 0.1 10^3/uL (0.0-0.5); EOS % 1.9 % (0.0-3.0); HEMATOCRIT 35.3 % (36.0-47.0); HEMOGLOBIN 11.9 g/dl (12.0-15.5); LYMPH # 1.6 10^3/uL (1.5-5.0); LYMPH % 25.9 % (24.0-44.0); MEAN CORPUSCULAR HEMOGLOBIN 29.1 pg (27.0-33.0); MEAN CORPUSCULAR HGB CONC 33.7 g/dl (32.0-36.5); MEAN CORPUSCULAR VOLUME 86.3 fl (80.0-96.0); MONO # 0.4 10^3/uL (0.0-0.8); MONO % 6.8 % (2.0-8.0); NEUTROPHILS # 4.1 10^3/uL (1.5-8.5); NEUTROPHILS % 64.6 % (36.0-66.0); PLATELET COUNT, AUTOMATED 140 10^3/uL (150-450); RED BLOOD COUNT 4.09 10^6/uL (4.00-5.40); WHITE BLOOD COUNT 6.3 10^3/uL (4.0-10.0)
[2023-08-19 16:32] LABS: LIPASE 40 U/L (12-53)
[2023-08-19 16:34] LABS: ALBUMIN 3.7 G/DL (3.2-5.2); ALKALINE PHOSPHATASE 37 U/L (46-116); ALT/SGPT 14 U/L (7.0-40); AST/SGOT 15 U/L (<34); BILIRUBIN,DIRECT 0.1 MG/DL (<0.4); BILIRUBIN,TOTAL 0.3 MG/DL (0.3-1.2); BLOOD UREA NITROGEN 20 MG/DL (9-23); CALCIUM LEVEL 9.2 MG/DL (8.3-10.6); CARBON DIOXIDE LEVEL 27 MMOL/L (20-31); CHLORIDE LEVEL 109 MMOL/L (98-107); CK-MB VALUE MASS < 1.0 NG/ML (<3.6); CPK CREATINE PHOSPHOKINASE 59 U/L (34-145); CREATININE FOR GFR 0.67 MG/DL (0.55-1.30); GLOMERULAR FILTRATION RATE > 60.0 (>39); GLUCOSE, FASTING 125 MG/DL (74-106); MB/CK RELATIVE INDEX 1.69 (< OR =4); POTASSIUM SERUM 3.5 MMOL/L (3.5-5.1); SODIUM LEVEL 139 MMOL/L (136-145); TOTAL PROTEIN 6.3 G/DL (5.7-8.2)
[2023-08-19 16:36] LABS: THYROID STIMULATING HORMONE 1.635 uIU/ML (0.55-4.78)
[2023-08-19] MEDS ORDERED: ISOVUE-370 76% 100ML VIAL As Ordered ONE (17:22)
[2023-08-19 17:47] LABS: CK-MB VALUE MASS < 1.0 NG/ML (<3.6)
[2023-08-19 17:48] LABS: CPK CREATINE PHOSPHOKINASE 64 U/L (34-145); MB/CK RELATIVE INDEX 1.56 (< OR =4)
[2023-08-19 20:23] VITALS: BP 160/72; O2SAT 96
== END 2023-08-19 20:37 | disposition home or self-care (01) ==
LOC: M ED 15:38 → EDBD 15:38 → M ED 20:37
DX: R07.9 Chest pain, unspecified (principal); R94.31 Abnormal electrocardiogram [ECG] [EKG]; I10 Essential (primary) hypertension; J45.909 Unspecified asthma, uncomplicated; F32.A Depression, unspecified; F41.9 Anxiety disorder, unspecified; I67.9 Cerebrovascular disease, unspecified; G45.9 Transient cerebral ischemic attack, unspecified; Z88.0 Allergy status to penicillin; Z91.040 Latex allergy status; Z88.8 Allergy status to other drugs, medicaments and biological substances; Z79.899 Other long term (current) drug therapy; Z79.1 Long term (current) use of non-steroidal anti-inflammatories (NSAID); Z79.51 Long term (current) use of inhaled steroids
CPT/HCPCS: 36415; 71045; 71275; 80048; 80076; 82550; 82553; 83690; 84443; 84484; 85025; 87486; 87581; 87633; 87798; 93005; 93041; 94760; 99285; Q9967

== ENCOUNTER → 2023-09-05 | Outpatient (CLI) | payer MEDICARE, MEDICAID | LOC: M RAD 15:35 | PROVIDERS: ATTEND Physician Assistant | DX: R05.9 Cough, unspecified (principal); R06.02 Shortness of breath ==

== ENCOUNTER → 2023-11-06 | Outpatient (REF) | payer MEDICARE, MEDICAID | LOC: M LAB REF 17:45 | PROVIDERS: ATTEND Internal Medicine | DX: R26.89 Other abnormalities of gait and mobility (principal) ==

== ENCOUNTER → 2024-02-19 | Outpatient (CLI) | payer MEDICARE, MEDICAID | LOC: M WHC 11:00 | PROVIDERS: ATTEND Internal Medicine | DX: N63.15 Unspecified lump in the right breast, overlapping quadrants (principal) | CPT/HCPCS: 76642; 77066; G0279 ==

== ENCOUNTER → 2024-04-04 | Outpatient (REF) | payer MEDICARE, MEDICAID | LOC: M LAB REF 16:27 | PROVIDERS: ATTEND Internal Medicine | DX: R26.89 Other abnormalities of gait and mobility (principal) ==

== ENCOUNTER → 2024-07-01 | Outpatient (REF) | payer MEDICARE, MEDICAID ==
[~2024-07-01] MED LIST changes: +GABA-1172 PO; -GABA-282 PO; -ROSU20TA61 PO; +ROSU20TA86 PO
[2024-07-01 17:26] LABS: INR 0.9; PARTIAL THROMBOPLASTIN TIME 30.1 SECONDS (24.8-34.2); PROTHROMBIN TIME 12.5 SECONDS (12.5-14.5)
[2024-07-01 17:30] LABS: APPEARANCE, URINE CLEAR (CLEAR); BACTERIA, URINE AUTO NEGATIVE (NEGATIVE); BILIRUBIN, URINE AUTO NEGATIVE (NEGATIVE); BLOOD, URINE BLOOD 1+ (NEGATIVE); COLOR, URINE YELLOW (YELLOW); GLUCOSE, URINE (UA) AUTO NEGATIVE (NEGATIVE); KETONE, URINE AUTO NEGATIVE (NEGATIVE); LEUKOCYTE ESTERASE, URINE AUTO NEGATIVE (NEGATIVE); MUCUS, URINE SMALL (NEGATIVE); NITRITE, URINE AUTO NEGATIVE (NEGATIVE); PROTEIN, URINE AUTO NEGATIVE (NEGATIVE); RBC, URINE AUTO 0 /HPF (0-3); SPECIFIC GRAVITY URINE AUTO 1.016 (1.002-1.035); SQUAMOUS EPITHELIAL CELL UR AU 0 /HPF (0-6); UROBILINOGEN, URINE AUTO 0.2 mg/dL (0.0-2.0); WBC, URINE AUTO 0 /HPF (0-3)
== END ==
LOC: M LAB REF 16:28
PROVIDERS: ATTEND Internal Medicine
DX: Z01.818 Encounter for other preprocedural examination (principal); Z79.01 Long term (current) use of anticoagulants

== ENCOUNTER → 2024-09-18 | Outpatient (CLI) | payer MEDICARE, MEDICAID ==
[~2024-09-18] MED LIST changes: -ALIG4CAP PO; +ALIG4CAP3 PO
== END ==
LOC: M RAD 16:02
PROVIDERS: ATTEND Internal Medicine
DX: G31.84 Mild cognitive impairment of uncertain or unknown etiology (principal)

== ENCOUNTER → 2024-10-06 | Outpatient (CLI) | payer MEDICARE, MEDICAID ==
[2024-10-06 13:40] LABS: BLOOD UREA NITROGEN 15 MG/DL (9-23); CALCIUM LEVEL 8.8 MG/DL (8.3-10.6); CARBON DIOXIDE LEVEL 30 MMOL/L (20-31); CHLORIDE LEVEL 108 MMOL/L (98-107); CREATININE FOR GFR 0.66 MG/DL (0.55-1.30); GLOMERULAR FILTRATION RATE > 60.0 (>39); GLUCOSE, FASTING 86 MG/DL (74-106); POTASSIUM SERUM 4.1 MMOL/L (3.5-5.1); SODIUM LEVEL 141 MMOL/L (136-145)
[2024-10-06 13:42] LABS: TOTAL 25(OH) VITAMIN D 55.3 NG/ML (20.0-100.0)
== END ==
LOC: M LAB 12:41
PROVIDERS: ATTEND Internal Medicine Endocrinology, Diabetes & Metabolism
DX: M81.0 Age-related osteoporosis without current pathological fracture (principal)

== ENCOUNTER → 2024-11-25 | Outpatient (CLI) | payer MEDICARE, MEDICAID | LOC: M WHC 11:10 | PROVIDERS: ATTEND Nurse Practitioner Family | DX: M81.0 Age-related osteoporosis without current pathological fracture (principal) ==

== ENCOUNTER 2025-07-04 16:18 | Emergency (ER) | payer MEDICARE, MEDICAID ==
[~2025-07-04] VITALS: Ht 144.8 cm; Wt 48.4 kg
[~2025-07-04 16:18] MED LIST changes: +LORA-1164 PO; -LORA-622 PO
[2025-07-04 19:09] VITALS: BP 134/61; TEMP 97; O2SAT 97
[2025-07-04] MEDS ORDERED: HYDR-3713 PO (19:10)
== END 2025-07-04 19:25 | disposition home or self-care (01) ==
LOC: M ED 16:18
DX: S20.211A Contusion of right front wall of thorax, initial encounter (principal); Y92.019 Unspecified place in single-family (private) house as the place of occurrence of the external cause; Y93.9 Activity, unspecified; Y99.9 Unspecified external cause status; Y02.8XXA Assault by pushing or placing victim in front of other moving object, initial encounter; K21.9 Gastro-esophageal reflux disease without esophagitis; E78.5 Hyperlipidemia, unspecified; Z88.0 Allergy status to penicillin; Z88.8 Allergy status to other drugs, medicaments and biological substances; Z91.040 Latex allergy status; Z79.1 Long term (current) use of non-steroidal anti-inflammatories (NSAID); Z79.51 Long term (current) use of inhaled steroids; Z79.899 Other long term (current) drug therapy